=== PATIENT | male | born 1945 | race Hispanic/Latino ===

== ENCOUNTER 2016-08-20 08:35 | Inpatient (IN) | payer MEDICARE, OTHER ==
[2016-08-20 08:59] VITALS: BMI 20.6
--- NOTE | 2016-08-20 09:35 | ED PDOC ---
Arrival/HPI - General Chief Complaint: Trauma Time Seen by Provider: 08/20/16 09:23 Historian: Patient, Family (Son) - History of Present Illness Narrative History of Present Illness (Text): 08/20/16 09:14 A 71 year old male, whose past medical history includes multiple fall due to history of progressive supranuclear palsy, who presents to the emergency department accompanied by son, for evaluation after a mechanical fall at home. The patient was getting of the bed when he lost balance and fell down. Patient notes some left posterior rib back and right knee pain. Son states patient frequently falls and he is acting at baseline currently. Patient denies any head trauma, loss of consciousness, fever, chills, chest pain, or any other complaints at this time. PMD: Dr. Arriola Time/Duration: Prior to Arrival Symptom Onset: Sudden Symptom Course: Unchanged Quality: Other Activities at Onset: Rest Context: Home Past Medical History - Provider Review Nursing Documentation Reviewed: Yes - Cardiac Hx Hypertension: Yes Hx Pacemaker: No - Neurological Hx Paralysis: No (DRAGS R LEG) - Hematological/Oncological Hx Blood Transfusions: No Hx Blood Transfusion Reaction: No - Musculoskeletal/Rheumatological Hx Musculoskeletal Disorders: Yes - Psychiatric Hx Emotional Abuse: No Hx Physical Abuse: No Hx Substance Use: Yes - Surgical History Hx Cholecystectomy: Yes - Anesthesia Hx Anesthesia: Yes Hx Anesthesia Reactions: No Hx Malignant Hyperthermia: No - Suicidal Assessment Feels Threatened In Home Enviroment: No Family/Social History - Physician Review Nursing Documentation Reviewed: Yes Family/Social History: Unknown Family HX Smoking Status: Former Smoker Hx Alcohol Use: Yes (OCC) Hx Substance Use: Yes Hx Substance Use Treatment: No Allergies/Home Meds Allergies/Adverse Reactions: Allergies No Known Allergies Allergy (Verified 08/20/16 09:25) Home Medications: Home Meds Medication Instructions Recorded Confirmed Clonazepam [Clonazepam] 1 tab PO HS 07/27/15 08/20/16 Escitalopram [Lexapro] 1 tab PO DAILY 07/27/15 08/20/16 Losartan [Cozaar] 1 tab PO BID 07/27/15 08/20/16 Tamsulosin [Flomax] 1 cap PO DAILY 07/27/15 08/20/16 Tramadol HCl [Tramadol HCl] 1 tab PO TID 07/27/15 08/20/16 Gabapentin [Neurontin] 300 mg PO BID 08/20/16 08/20/16 tiZANidine [Zanaflex] 2 mg PO QID 08/20/16 08/20/16 Physical Exam - Physical Exam Narrative Physical Exam (Text): - Review of Systems Constitutional: Normal. absent: Fatigue, Weight Change, Fevers Eyes: Normal ENT: Normal Respiratory: Normal absent: SOB, Cough, Sputum Cardiovascular: Normal absent: Chest pain, Palpitations, Syncope Gastrointestinal: Normal absent: Abdominal pain, Diarrhea, Nausea, Vomiting Genitourinary: Normal. absent: Dysuria, Frequency, Hematuria Musculoskeletal: Left posterior rib pain. Right knee pain. absent: Arthralgias, Back Pain, Neck Pain Skin: Normal Neurological: Normal absent: Focal Weakness Endocrine: Normal Hemo/Lymphatic: Normal Psychiatric: Normal - Physical exam Patient appears age appropriate, speaking full sentences without difficulty - Systems Exam Head: Present: Atraumatic, Normocephalic Pupils: Present: PERRL Extraocular Muscles: Present: EOMI Conjunctiva: Present: Normal Mouth: Present: Moist Mucous Membranes Neck: Present: Normal Range of Motion. No: MIDLINE TENDERNESS, Paraspinal Tenderness Respiratory/Chest: Present: Clear to Auscultation, Good Air Exchange. Tenderness with palpation to the posterior left ribs (pain quality is reproducible with palpation.) No: Respiratory Distress, Accessory Muscle Use, Tachypneic Cardiovascular: Present: Regular Rate and Rhythm, Normal S1, S2, Peripheral Pulses Present. No: Murmurs Abdomen: Present: Normal Bowel Sounds, No: Tenderness, Peritoneal Signs, Rebound, Guarding, Distention Back: Present: Normal Inspection. No: Midline Tenderness, Paraspinal Tenderness Upper Extremity: Present: Normal Inspection. No: Cyanosis, Edema Lower Extremity: Present: Superficial abrasion to the right knee. No: Edema Neurological: Present: GCS=15, Speech Normal, cranial nerves II through XII fully intact with no cerebellar abnormality, neuro-sensory fully intact. No focal neurological deficits. Skin: Present: Warm, Dry, Normal Color. Abrasion to the rigth knee. No: Rashes Lymphatic: Present: OX3, NI, NC Psychiatric: Present: Alert, Oriented x 3, Normal Insight, Normal Concentration Head atraumatic. No nasal bone deformity or tenderness, no facial or jaw pain/ swelling. No neck midline tenderness, thoracic and lumbar spine with no midline tenderness. tenderness with palpation to the posterior left rib. Pt moving b/l upper and lower extremities without difficulty, 5/5 strength, with full active and passive ROM. Superficial abrasion to the right knee. Distal neurovasc fully intact. Abd soft/nt/nd, no hematomas, no peritoneal signs. Neg. pelvic rock. Vital Signs Reviewed: Yes Vital Signs Temp Pulse Resp BP Pulse Ox 08/20/16 08:59 97.1 F L 78 18 130/81 100 Temperature: Afebrile Blood Pressure: Normal Pulse: Regular Respiratory Rate: Normal Appearance: Positive for: Well-Appearing, Non-Toxic, Comfortable Pain Distress: None Mental Status: Positive for: Alert and Oriented X 3 Medical Decision Making ED Course and Treatment: 08/20/16 09:14 Impression: A 71 year old male with left rib and right knee pain after a mechanical fall. On physical examination the patient and reproducible tenderness with palpation to the left posterior rib and a superficial abrasion to the right knee. Differential Diagnosis include but are not limited to: fractures vs. vs. sprain Plan: -- Head CT -- Thoracic Spine X-ray -- Right Knee X-ray -- Right Ribs and PA Chest X-ray -- Tylenol -- Reassess and disposition Progress Notes: Head CT: Tele Tech: Paradise Steiner MD IMPRESSION: No acute intracranial abnormality. Thoracic Spine X-ray: Tele Tech: Lionel Linn MD IMPRESSION: Mild degenerative changes. No acute compression fracture. Right Ribs and PA Chest X-ray: Tele Tech: Lionel Linn MD IMPRESSION: Unremarkable radiographs of the chest and right ribs. No right rib fracture. Right Knee X-ray: Tele Tech: Lionel Linn MD IMPRESSION: Normal radiographs of the right knee. 08/20/16 12:16 Left Rib X-ray: Tele Tech : Lionel Orourke MD IMPRESSION: There is a displaced transverse fracture through the lateral aspect of the left 8th rib. There is no pneumothorax 08/20/16 12:49 Patient is in pain and cannot ambulate. Family reports they are not comfortable taking the patient home at this time. 08/20/16 12:[address] Arriola, accepted admission to his service pt and family aware of and agree with plan - RAD Interpretation Radiology Orders: 08/20/16 09:32 HEAD W/O CONTRAST [CT] Stat DORSAL (THORACIC) SPINE [RAD] Stat KNEE RIGHT 2 VIEWS (AP & LAT) [RAD] Stat RIBS RIGHT & PA CHEST [RAD] Stat 08/20/16 11:31 RIBS LEFT [RAD] Stat - Medication Orders Current Medication Orders: Discontinued Medications Acetaminophen (Tylenol 325mg Tab) 975 mg PO STAT STA Stop: 08/20/16 09:32 Last Admin: 08/20/16 09:49 Dose: 975 mg - Scribe Statement The provider has reviewed the documentation as recorded by the Lucas Bullock Provider Scribe Attestation: All medical record entries made by the Lucas were at my direction and personally dictated by me. I have reviewed the chart and agree that the record accurately reflects my personal performance of the history, physical exam, medical decision making, and the department course for this patient. I have also personally directed, reviewed, and agree with the discharge instructions and disposition. Disposition/Present on Arrival - Present on Arrival Any Indicators Present on Arrival: No History of DVT/PE: No History of Uncontrolled Diabetes: No Urinary Catheter: No History of Decub. Ulcer: No History Surgical Site Infection Following: None - Disposition Have Diagnosis and Disposition been Completed?: Yes Diagnosis: Rib fracture Disposition: HOSPITALIZED Disposition Time: 12:55 Patient Plan: Admission Condition: FAIR Referrals: Darrian Arriola JD, MD [Primary Care Provider] - Follow up with primary
--- NOTE | 2016-08-20 11:14 | RAD ---
HISTORY: fall COMPARISON: No prior. FINDINGS: BONES: Alignment maintained. No fracture. DISC SPACES: Normal. SOFT TISSUES: Normal. OTHER FINDINGS: Multiple osteophytes are seen anteriorly and on the right side of the mid and lower thoracic spine IMPRESSION: Mild degenerative changes. No acute compression fracture
--- NOTE | 2016-08-20 11:14 | CT ---
PROCEDURE: CT HEAD WITHOUT CONTRAST. HISTORY: Fall COMPARISON: None available. TECHNIQUE: Axial computed tomography images were obtained through the head/brain without intravenous contrast. Radiation dose: Total exam DLP = 779.37 mGy-cm. This CT exam was performed using one or more of the following dose reduction techniques: Automated exposure control, adjustment of the mA and/or kV according to patient size, and/or use of iterative reconstruction technique. FINDINGS: HEMORRHAGE: No intracranial hemorrhage. BRAIN: Yoon-white matter differentiation is preserved. There is no mass, mass effect or abnormal extra-axial fluid collection. VENTRICLES: The ventricles are normal in size, shape and configuration. CALVARIUM: There is no calvarial fracture or extracranial soft tissue swelling. PARANASAL SINUSES: Predominantly . MASTOID AIR CELLS: Predominantly clear. OTHER FINDINGS: None. IMPRESSION: No acute intracranial abnormality.
--- NOTE | 2016-08-20 11:15 | RAD ---
PROCEDURE: Right Knee Radiographs. HISTORY: fall COMPARISON: None. FINDINGS: BONES: Normal. No fracture. JOINTS: Normal. No osteoarthritis. JOINT EFFUSION: None. OTHER FINDINGS: None. IMPRESSION: Normal radiographs of the right knee.
--- NOTE | 2016-08-20 11:16 | RAD ---
PROCEDURE: Radiographs of the Chest and Right Ribs. HISTORY: fall COMPARISON: None available. TECHNIQUE: Frontal radiograph of the chest and multiple oblique radiographs of the right ribs were obtained. FINDINGS: RIGHT RIBS: No fracture or focal lesion visualized. LUNGS: Clear. PLEURA: No pneumothorax or pleural fluid. CARDIOVASCULAR: Normal sized heart. No pulmonary vascular congestion. OTHER FINDINGS: None. IMPRESSION: Unremarkable radiographs of the chest and right ribs. No right rib fracture.
--- NOTE | 2016-08-20 12:17 | RAD ---
PROCEDURE: Left ribs HISTORY: fall COMPARISON: TECHNIQUE: Three views FINDINGS: There is a displaced transverse fracture through the lateral aspect of the left 8th rib. There is no pneumothorax IMPRESSION: There is a displaced transverse fracture through the lateral aspect of the left 8th rib. There is no pneumothorax
[2016-08-20 13:31] LABS: ADD MANUAL DIFF? NO
[2016-08-20 13:35] LABS: BASO # 0.04 K/mm3 (0.0-2.0); BASO % 0.5 % (0.0-3.0); EOS # 0.1 (0.0-0.7); EOS % 0.7 % (1.5-5.0); GRAN # 6.62 (1.4-6.5); GRAN % 78.6 % (50.0-68.0); HEMATOCRIT 38.4 % (42.0-52.0); LYMPH % 12.3 % (22.0-35.0); MEAN CELL VOLUME 86.5 fL (80.0-105.0); MEAN CORPUSCULAR HEMOGLOBIN 28.8 pg (25.0-35.0); MEAN CORPUSCULAR HGB CONC 33.3 g/dl (31.0-37.0); MEAN PLATELET VOLUME 9.4 fl (7.0-11.0); MONO # 0.7 (0.1-0.6); MONO % 7.9 % (1.0-6.0); PLATELET COUNT 211 10^3/uL (120.0-450.0); RED CELL DISTRIBUTION WIDTH 14.5 % (11.5-14.5); WHITE BLOOD COUNT 8.4 10^3/ul (4.5-11.0)
[2016-08-20 13:43] LABS: ALB/GLOB RATIO 1.3 (1.1-1.8); ALKALINE PHOSPHATASE 66 U/L (38-133); ALT/SGPT 32 U/L (7-56); AST/SGOT 21 U/L (15-59); BILIRUBIN,TOTAL 0.8 mg/dL (0.2-1.3); BLOOD UREA NITROGEN 14 mg/dL (7-21); CALCIUM 9.1 mg/dL (8.4-10.5); CARBON DIOXIDE 27 mmol/L (21-33); CHLORIDE 105 mmol/L (95-110); GFR AFRICAN-AMERICAN > 60; GLUCOSE,RANDOM 95 mg/dL (70-110); POTASSIUM 3.9 mmol/L (3.6-5.0); SODIUM 141 mmol/L (132-148); TOTAL PROTEIN 6.6 g/dL (5.8-8.3)
[2016-08-20] MEDS ORDERED: Pneumococcal 23-Valent Vaccine IM ONE (22:18)
[2016-08-21] MEDS: Carbidopa/Levodopa 25/250 PO SCH ×2 (15:41→18:57)
--- NOTE | 2016-08-21 17:09 | CON ---
DATE: 08/21/2016 CHIEF COMPLAINT: History of PSP status post fall. HISTORY OF PRESENT ILLNESS: This is a 71-year-old man with history of hypertension, history of PSP d iagnosed by Dr. Telles, his neurologist; history of anxiety, who presents to the hospital because schreiber s multiple falls. Apparently, he had a mechanical fall at home when he was getting out of bed. He h ad lost his balance and fell down. He noticed some left posterior rib, back and right knee pain, but no head trauma, no loss of consciousness. He found to have a displaced fracture at the lateral aspe ct of the left eighth rib, but no pneumothorax on the left rib x-ray. CT head showed no acute intrac ranial abnormality. He has had an MRI of the brain in the past in 12/2015, which showed no acute int racranial abnormality. He is on tizanidine for muscle spasms and gabapentin for neuropathic pain. PAST MEDICAL HISTORY: PSP diagnosed by his neurologist, Dr. Telles. Hypertension. REVIEW OF SYSTEMS: A 14-point review of systems negative except for the HPI. ALLERGIES: No known drug allergies. MEDICATIONS: Reviewed via nurse's reconciliation sheet. SOCIAL HISTORY: No illicit drug use, smoking or ETOH abuse. FAMILY HISTORY: Noncontributory. PHYSICAL EXAMINATION: VITAL SIGNS: Temperature 98.5, pulse rate 78, blood pressure 116/71, respiratory rate of 18. Oxygen saturation 98% via room air. GENERAL: The patient is sitting up in bed in no acute distress. HEENT: Atraumatic, normocephalic. PERRLA. Extraocular muscles intact. NECK: Supple, no JVD, no adenopathy noted. LUNGS: Clear to auscultation. No adventitious sounds. HEART: S1, S2, normal rate and rhythm. No murmurs, rubs, or gallops. ABDOMEN: Soft, nontender, nondistended. Bowel sounds are present. EXTREMITIES: No clubbing, no cyanosis. Peripheral pulses 2+ felt bilaterally. NEUROLOGIC: The patient is alert, orientated to person, place, month and year. Speech is hypophonic . Has a ____ like, mass-like facies, limited upward gaze and attention span, thought process slow. Recall after 5 minutes is 0/3. Cranial nerves II-XII intact. MOTOR: Slight increased tone throughout, mild cogwheel rigidity at the wrists. Has forward flexion of the spine. SENSORY: Light touch, pinprick, proprioception, vibration intact. DTRs are 1+ throughout. COORDINATION: [id number]-srcs intact. GAIT: Deferred for now. LABORATORIES: Sodium 141, potassium 3.9, chloride of 105, carbon dioxide of 27, BUN of 14, creatinin e 0.9, random glucose 95. ASSESSMENT AND PLAN: This is a 71-year-old man with history of chronic back pain on Zanaflex 2 mg q. i.d. and gabapentin 300 mg p.o. b.i.d. and tramadol by his neurologist, Dr. Telles; history of anxie ty and hypertension, who had a mechanical fall and has history of progressive supranuclear palsy, whi ch has had mechanical falls, multiple falls in the past. The patient overall has a diagnosis of prog ressive supranuclear palsy diagnosed by his neurologist, Dr. Telles. At this time, his mechanical f all resulted in a left posterior eighth rib fracture. No loss of consciousness. No head injury. CT head showed no acute intracranial abnormality. At this time, we will recommend physical and occupat ional therapy evaluation. Avoid overuse of tramadol, which can cause seizures in this patient's age group and may benefit from some subacute rehabilitation. At this time, continue with current present management. No further neurological workup at this time. Please reconsult if necessary. Rodrigo Shankar MD cc: [phone] TT: 08/21/2016 17:08:44 Confirmation # [id number] Dictation # [id number] sn
--- NOTE | 2016-08-21 20:04 | HP ---
HISTORY OF PRESENT ILLNESS: The patient is a 71-year-old male with a history of progressive supranuc lear palsy who presented to the Emergency Department on 08/20/2016 after a fall at home. The patient sustained a fracture of the left 8th rib and he has been unable to walk. The patient has a history of recurrent falls. He denies any head trauma. There was no loss of consciousness or seizure. PAST MEDICAL HISTORY: Includes progressive supranuclear palsy, hypertension and depression. PAST SURGICAL HISTORY: Includes BPH. The patient has a history of spinal stenosis status post khurram ectomy. He has a history of cholecystectomy in 2009. ALLERGIES: The patient has no known allergies. CURRENT MEDICATIONS: Include losartan 50 mg twice daily, Flomax 0.4 mg daily, Klonopin 1 mg at bedti me, Lexapro 10 mg daily, Sinemet 25/250 one tab 3 times daily, tramadol 50 mg 3 times daily and Zanaf unique 2 mg at bedtime. SOCIAL HISTORY: The patient has no history of tobacco or alcohol use. He lives at home with his wif haim. He needs assistance with IADLs and is independent with ADLs. FAMILY HISTORY: Noncontributory. REVIEW OF SYSTEMS: Essentially negative other than above. There is no chest pain, no shortness of b reath, no fever, no chills, no cough, no hemoptysis, no rash, no jaundice, no abdominal pain, no naus ea, no vomiting, no diarrhea, no melena, no bright red blood per rectum. PHYSICAL EXAMINATION: GENERAL: The patient is a somewhat cachectic appearing male in no acute distress. VITAL SIGNS: Blood pressure 116/71, temperature 98.5, pulse 78, respiratory rate 18. HEENT: Head is normocephalic, atraumatic. Pupils equal, round, reactive to light. Extraocular move ments intact. NECK: Supple with no thyromegaly, no carotid bruit, no adenopathy. LUNGS: Clear. HEART: Regular rate and rhythm. ABDOMEN: Soft, nontender, bowel sounds are normoactive. EXTREMITIES: Without cyanosis, clubbing or edema. There is mild to moderate muscle wasting and atro phy in all 4 extremities bilaterally. NEUROLOGIC: The patient is awake and responsive. He has some rigidity and cogwheeling involving all 4 extremities. Gait is ataxic. He is slightly dysarthric. SKIN: Warm and dry. LABORATORY DATA: WBC is 8.4, hemoglobin 12.8, hematocrit 38.4. Sodium 141, potassium 3.9, chloride 105, CO2 of 27, BUN 14, creatinine 0.9, glucose 95. CT scan of the head shows no acute bleeds or inf arcts. IMPRESSION: 1. Progressive supranuclear palsy, status post fall with fracture of the left 8th rib. 2. Hypertension. 3. History of spinal stenosis status post laminectomy. 4. Benign prostatic hypertrophy. PLAN: The patient is admitted to the medical-surgical floor. Will obtain neurology consult with Dr. Shankar. Continue Sinemet. Physical therapy and social work for discharge planning. Darrian Arriola JD, MD cc: [phone] TT: 08/21/2016 20:04:03 [place]
[2016-08-22 07:48] LABS: HEMATOCRIT 39.8 % (42.0-52.0); MEAN CELL VOLUME 86.9 fL (80.0-105.0); MEAN CORPUSCULAR HEMOGLOBIN 28.6 pg (25.0-35.0); MEAN CORPUSCULAR HGB CONC 32.9 g/dl (31.0-37.0); MEAN PLATELET VOLUME 9.6 fl (7.0-11.0); RED CELL DISTRIBUTION WIDTH 14.6 % (11.5-14.5); WHITE BLOOD COUNT 6.2 10^3/ul (4.5-11.0)
[2016-08-22 08:18] LABS: BLOOD UREA NITROGEN 16 mg/dL (7-21); CALCIUM 9.2 mg/dL (8.4-10.5); CARBON DIOXIDE 28 mmol/L (21-33); CHLORIDE 107 mmol/L (98-107); GFR AFRICAN-AMERICAN > 60; GLUCOSE,RANDOM 92 mg/dL (70-110); MAGNESIUM 1.9 mg/dL (1.7-2.2); POTASSIUM 4.2 mmol/L (3.6-5.0); SODIUM 141 mmol/L (132-148)
[2016-08-22] MEDS: Carbidopa/Levodopa 25/250 PO SCH ×3 (10:14→18:05)
--- NOTE | 2016-08-22 14:14 | PN ---
DATE: 08/22/2016 SUBJECTIVE: The patient is lying in bed, in no acute distress. OBJECTIVE: VITAL SIGNS: Blood pressure 104/72, temperature 98, pulse 72, respiratory rate 20. LUNGS: Clear. HEART: Regular rate and rhythm. ABDOMEN: Soft, nontender, bowel sounds are normoactive. EXTREMITIES: Without cyanosis, clubbing, or edema. NEUROLOGIC: The patient is awake and responsive with rigidity and cogwheeling involving all 4 extrem ities. He remains slightly dysarthric. SKIN: Warm and dry. LABORATORY DATA: WBC 6.2, hemoglobin 13.1, hematocrit 39.8. Sodium 141, potassium 4.2, chloride 107 , CO2 28, BUN 16, creatinine 1.0, glucose 92. IMPRESSION: 1. Progressive supranuclear palsy, status post fall with fracture of left 8th rib and gait dysfuncti on with inability to walk. 2. Hypertension. 3. History of spinal stenosis status post laminectomy with chronic low back pain. 4. Benign prostatic hypertrophy. PLAN: Neurology consult with Dr. Shankar is appreciated. Continue Sinemet, gabapentin for neuropathi c pain, physical therapy for ambulation, and social work for discharge planning. Darrian Arriola JD, MD cc: [id number] TT: 08/22/2016 14:13:15 Confirmation # [id number] Dictation # [id number] ne
[2016-08-23] MEDS: Carbidopa/Levodopa 25/250 PO SCH ×3 (09:20→17:03)
--- NOTE | 2016-08-23 15:46 | PN ---
DATE: 08/23/2016 SUBJECTIVE: The patient is lying in bed, in no acute distress. OBJECTIVE: VITAL SIGNS: Blood pressure 102/65, temperature 98.2, pulse 69, respiratory rate 20. LUNGS: Clear. HEART: Regular rate and rhythm. ABDOMEN: Soft, nontender, bowel sounds are normoactive. EXTREMITIES: Without cyanosis, clubbing, or edema. NEUROLOGIC: The patient is awake and responsive. He has mild cogwheeling and rigidity involving all 4 extremities. He remains somewhat dysarthric. SKIN: Warm and dry. IMPRESSION: 1. Progressive supranuclear palsy, status post fall with fractured left 8th rib/gait dysfunction. 2. Hypertension. 3. History of spinal stenosis, status post laminectomy with chronic low back pain. 4. Benign prostatic hypertrophy. PLAN: Continue neurology followup with Dr. Shankar. Physical therapy and social work for discharge jos riley. Darrian Arriola JD, MD cc: [id number] TT: 08/23/2016 15:45:40 Confirmation # [id number] Dictation # [id number] en
[2016-08-23 17:06] VITALS: BP 111/75; PULSE 81
[2016-08-23 18:03] VITALS: RESP 16; TEMP 98.1; O2SAT 95
--- NOTE | 2016-08-24 12:39 | DS ---
HOSPITAL COURSE: The patient is a 71-year-old male admitted through the Emergency Department on 2016 after sustaining a fall at home with a fracture of the left 8th rib and subsequent inability to ambulate. The patient was started on physical therapy. Neurology consultation was obtained with Dr. Shankar and the patient was started on physical therapy for ambulation. [facility] and was discharged to subacute rehab facility on 08/23/2016 in stable condition. Physical fin dings including vital signs are as per progress note dictated 08/23/2016. MEDICATIONS: The patient was discharged on the following medications: Neurontin 300 mg twice daily, Lexapro 10 mg daily, Klonopin 1 mg at bedtime, Sinemet-CR 200/50 one tab 3 times daily, tramadol 50 mg 3 times daily. IMPRESSION: 1. Progressive supranuclear palsy, status post fall with fracture of the 8th rib/gait dysfunction. 2. Hypertension. 3. History of spinal stenosis status post laminectomy with chronic low back pain. 4. Benign prostatic hypertrophy. PLAN: The patient was discharged to subacute rehab facility. He was discharged on a regular diet. Activity is as per the rehabilitation facility. Darrian Arriola JD, MD cc: [id number] TT: 08/24/2016 12:38:46 [place]
--- NOTE | 2016-09-10 08:27 | CON ---
DATE: 08/20/2016 This is a 71-year-old male with past medical history of falls due to progressive supranuclear palsy w ho presents to the Emergency Department accompanied by son for eval after a fall at home. The patien t got out of bed, lost his balance and fell down. The patient notes some left posterior rib, back pa in and right knee pain. Denies any loss of consciousness, fever, chills, chest pain, or any other co mplaints at this time. PHYSICAL EXAMINATION: CONSTITUTIONAL: Normal. No weight loss, no fever, no fatigue. EYES: Normal. ENT: Normal. RESPIRATORY: Lung sounds clear bilaterally. No shortness of breath or cough. CARDIOVASCULAR: S1, S2 audible, regular rate and rhythm. ABDOMEN: Normal sounds. No tenderness. No rebound or guarding. BACK: Normal inspection, no tenderness, no paraspinal tenderness. No tenderness over L3 and L4 leve ls. UPPER EXTREMITIES: Normal inspection. No cyanosis or edema. LOWER EXTREMITIES: There is an abrasion to the right knee. No signs of infection, no drainage. NEUROLOGIC: Speech is normal. Cranial nerves II-XII are intact. Neurosensory is intact. No neurol ogical deficit. SKIN: Warm and dry. Normal color. No rashes. PSYCHIATRIC: The patient is alert and oriented x 3. MUSCULOSKELETAL: Full range of motion to bilateral upper and lower extremities. CT scan was done on 08/20 of the head with no acute injuries and x-ray of the left ribs showed transv erse fracture through 8th rib. No pneumothorax. So at this time, we will change Zanaflex 2 mg from 4 times a day to bedtime and will continue tramado l 50 mg 3 times a day as needed. We will continue to monitor for any issues. The patient is in pain at this time and cannot ambulate. Will consider physical therapy during next visit. Oleg Alexander MD cc: [id number] TT: 09/07/2016 16:14:15 Confirmation # [id number] Dictation # [id number] en
== END 2016-08-23 18:40 | DRG 206 ==
LOC: ED 08:35 → ERH 12:51 → 5RSO 15:05
PROVIDERS: ADMIT Internal Medicine; ATTEND Internal Medicine
DX: S22.32XA Fracture of one rib, left side, initial encounter for closed fracture (principal); G23.1 Progressive supranuclear ophthalmoplegia [Steele-Richardson-Olszewski]; I10 Essential (primary) hypertension; F32.9 Major depressive disorder, single episode, unspecified; N40.0 Benign prostatic hyperplasia without lower urinary tract symptoms; M48.00 Spinal stenosis, site unspecified; F41.9 Anxiety disorder, unspecified; R26.2 Difficulty in walking, not elsewhere classified; Z91.81 History of falling; R29.6 Repeated falls; W19.XXXA Unspecified fall, initial encounter; Y92.013 Bedroom of single-family (private) house as the place of occurrence of the external cause

== ENCOUNTER 2016-12-06 13:04 | Inpatient (IN) | payer MEDICARE, OTHER ==
[2016-12-06 13:18] VITALS: BMI 19.8
--- NOTE | 2016-12-06 14:00 | ED PDOC ---
Arrival/HPI - General Historian: Patient - History of Present Illness Time/Duration: Other (yesterday) Symptom Onset: Sudden Symptom Course: Unchanged <Barry Segura - Last Filed: 12/06/16 17:18> <Deondre Hoyos - Last Filed: 12/06/16 18:54> - General Chief Complaint: Trauma Time Seen by Provider: 12/06/16 13:06 - History of Present Illness Narrative History of Present Illness (Text): 12/06/16 13:56 This is a 71 year old male with PMHx Progressive Supranuclear Palsy diagnosed in 01/2016, HTN, Anxiety who presents complaining of frequent falls. Per the son , it seems as if the patient's right leg lags behind the left. Patient has had 4 or 5 episodes of unwitnessed falls. No reported LOC, although the patient states that he hit his head, neck, face, right ribs, and right knee. Patient denies any acute changes in vision, dizziness, or weakness. Patient complains of tenderness in the neck but his worst pain is in the posterior right ribcage. Patient complains of chronic lower back pain. PMD: Dr. Arriola Neurologist: Dr. Telles (Barry Segura) Past Medical History - Cardiac Hx Hypertension: Yes - Neurological HX Cerebrovascular Accident: Yes (drags right foot) - Hematological/Oncological Hx Blood Transfusions: No Hx Blood Transfusion Reaction: No - Integumentary Other/Comment: scrape under left forearm, multiple r knee abrasions - Musculoskeletal/Rheumatological Hx Arthritis: Yes - Psychiatric Hx Emotional Abuse: No Hx Physical Abuse: No Hx Substance Use: Yes (marijuana stopped can't remember when) - Surgical History Hx Cholecystectomy: Yes - Anesthesia Hx Anesthesia: Yes Hx Anesthesia Reactions: No Hx Malignant Hyperthermia: No - Suicidal Assessment Feels Threatened In Home Enviroment: No <Barry Segura - Last Filed: 12/06/16 17:18> - Provider Review Nursing Documentation Reviewed: Yes <Deondre Hoyos - Last Filed: 12/06/16 18:54> Family/Social History Smoking Status: Never Smoked Hx Alcohol Use: No Hx Substance Use: Yes (marijuana stopped can't remember when) Hx Substance Use Treatment: No <Barry Segura - Last Filed: 12/06/16 17:18> - Physician Review Nursing Documentation Reviewed: Yes Family/Social History: No Known Family HX <Obed Hoyoso L - Last Filed: 12/06/16 18:54> Allergies/Home Meds <Barry Segura - Last Filed: 12/06/16 17:18> <Obed Hoyosdebo Akers - Last Filed: 12/06/16 18:54> Allergies/Adverse Reactions: Allergies No Known Allergies Allergy (Verified 08/20/16 09:25) Home Medications: Home Meds Medication Instructions Recorded Confirmed Clonazepam [Clonazepam] 1 tab PO HS 07/27/15 12/06/16 Escitalopram [Lexapro] 1 tab PO DAILY 07/27/15 12/06/16 Losartan [Cozaar] 100 mg PO DAILY 07/27/15 12/06/16 Tamsulosin [Flomax] 1 cap PO DAILY 07/27/15 12/06/16 Tramadol HCl [Tramadol HCl] 1 tab PO TID 07/27/15 12/06/16 Gabapentin [Neurontin] 300 mg PO BID 08/20/16 12/06/16 tiZANidine [Zanaflex] 0.5 mg PO BID 08/20/16 12/06/16 Carbidopa/Levodopa 1 tab PO TID 12/06/16 12/06/16 [Carbidopa-Levodopa 25-250 Tab] Review of Systems - Review of Systems Constitutional: Normal Eyes: Normal. absent: Vision Changes ENT: Normal Respiratory: Normal Cardiovascular: Normal Gastrointestinal: Normal Genitourinary Male: Normal Musculoskeletal: Back Pain (chronic low back pain), Neck Pain, Other (right posterior ribcage pain) Skin: Other (various abrasions in all 4 extremities) Neurological: Normal. absent: Dizziness, Focal Weakness Endocrine: Normal Hemo/Lymphatic: Normal Psychiatric: Normal <Barry Seguar - Last Filed: 12/06/16 17:18> Physical Exam Vital Signs Reviewed: Yes Temperature: Afebrile Blood Pressure: Normal Pulse: Regular Respiratory Rate: Normal Appearance: Positive for: Comfortable Pain Distress: None Mental Status: Positive for: Alert and Oriented X 3 - Systems Exam Head: Present: Atraumatic, Normocephalic Pupils: Present: PERRL Extroacular Muscles: Present: EOMI Conjunctiva: Present: Normal Mouth: Present: Moist Mucous Membranes Nose (External): Present: Abrasion Neck: Present: Normal Range of Motion, Paraspinal Tenderness Respiratory/Chest: Present: Clear to Auscultation, Good Air Exchange. No: Accessory Muscle Use Cardiovascular: Present: Regular Rate and Rhythm, Normal S1, S2 Abdomen: Present: Normal Bowel Sounds. No: Tenderness, Distention Back: Present: Other (tenderness along posterior right ribcage). No: Midline Tenderness Upper Extremity: Present: Normal Inspection, NORMAL PULSES, Other (multiple abrasions in different stages of healing bilaterally). No: Edema Lower Extremity: Present: Normal Inspection, NORMAL PULSES, Other (multiple abrasions in different stages of healing bilaterally). No: Edema, CALF TENDERNESS Neurological: Present: GCS=15, CN II-XII Intact, Motor Func Grossly Intact, Normal Sensory Function, Other (Bilateral clonus in lower extremities. Plantar responses up-going. Partial left foot drop. Right foot drop with early stages of plantarflexion contracture.). No: Speech Normal (hypophonic) Skin: Present: Warm, Dry Psychiatric: Present: Alert, Oriented x 3 <Barry Segura S - Last Filed: 12/06/16 17:18> Vital Signs Temp Pulse Resp BP Pulse Ox 12/06/16 15:53 75 18 122/68 99 12/06/16 14:20 79 18 118/65 99 12/06/16 13:17 98.7 F 82 19 121/63 99 12/06/16 13:10 20 Medical Decision Making <Barry Segura S - Last Filed: 12/06/16 17:18> <Deondre Hoyos - Last Filed: 12/06/16 18:54> ED Course and Treatment: 12/06/16 14:08 Impression: This is a 71 year old male with PMHx Progressive Supranuclear Palsy , recurrent falls who presents complaining of multiple falls yesterday. Patient recently hospitalized in August 2016 and went to [facility] before returning home. Patient's son states that he receives home PT but has run out of sessions that insurance will pay for. Plan: CBC, CMP, Mag, Phos CT Head w.o. contrast Cervical Spine CT w.o. contrast Maxillofacial CT w.o. contrast Right rib Xray Dorsal Thoracic Xray LS Xray Right Knee Xray CT Head w.o. contrast: FINDINGS: HEMORRHAGE: Current study reveals thin/relatively small but extensive of left-sided subdural hematoma which extends nearly from skullbase to vertex. There is mild mass effect most notably along the left inferior mid frontal region with mild compressive effects on subjacent sulci. . BRAIN: Minor chronic periventricular white matter ischemic changes are felt to be present. No evidence of large acute infarct so far as can be seen. Mild generalized volume loss. Minor vascular calcifications are present. VENTRICLES: No evidence of obstructive hydrocephalus. CALVARIUM: No acute calvarial fractures. PARANASAL SINUSES: Minimal mucosal thickening seen within the ethmoid air complex. Tiny focus polypoid like mucosal thickening left maxillary antrum. Bilateral nasal bone fracture deformities are present with overlying mild soft tissue swelling MASTOID AIR CELLS: Unremarkable as visualized. No inflammatory changes. OTHER FINDINGS: None. IMPRESSION: There is a small somewhat thin but extensive left-sided subdural hematoma which from nearly the skullbase to the vertex of with mild mass effect as described. Maxillofacial CT: FINDINGS: NASAL BONES: There are bilateral nasal bone fractures left more significantly displaced than the right. Overlying soft tissue swelling. There appears to be slight leftward deviation of the nasal septum as well. Mild submucosal hemorrhage felt be present within the septum and more so on the left than right. ORBITS: Bony orbits appear intact. . . Orbital contents unremarkable. Globes intact and lenses appropriately located. There are no retrobulbar hemorrhages or collections. Optic nerves and extraocular musculature unremarkable. PARANASAL SINUSES/ MASTOIDS: The paranasal sinuses are well-developed and currently relatively well-aerated. There are no fluid levels seen to suggest acute hemorrhage or sinusitis. Minor mucosal thickening seen within the left maxillary sinus. Minimal mucosal thickening also noted within the ethmoid air complex extending superiorly into the inferior margins of the frontal sinus. MAXILLA: The maxilla including the anterior nasal spine intact MANDIBLE/ TEMPOROMANDIBULAR JOINTS: Mandible intact without evidence of displacement/ dislocation of the mandibular condyles. SKULL BASE: Skull base appears intact so far as can be seen TEMPORAL BONES: Middle ears are not visualized OTHER FINDINGS: Re- demonstrated is a left-sided subdural hematoma most pronounced in the left anterior inferior mid frontal region. IMPRESSION: Bilateral nasal bone fractures left-sided which appears on comminuted and significantly displaced to the right side with overlying soft tissue swelling. . . There is also presumed submucosal hemorrhage within the anterior nasal septum left greater than right. Left-sided subdural hematoma. Please refer to CT scan of the brain for additional details. Thoracic Spine Xray: IMPRESSION: No acute fractures. Multilevel degenerative spondylosis. Lumbar Spine Xray: IMPRESSION: No acute fractures. Bilateral laminectomy with posterior fixation as described. Multilevel degenerative spondylosis as described. Right Knee Xray: IMPRESSION: No acute fracture seen. Findings suggest chondrocalcinosis; rule out CPPD Vascular clips are present within soft tissues; clinical correlation with surgical history. Right Ribs Xray: IMPRESSION: Acute mildly displaced fractures in the right posterolateral 9th, 10th and 11th ribs. No pneumothorax. Dr. Tavarez (neurosurgery consulted), recommended conservative management and ICU admission. Vocational Adviser contacted who agreed for admission at 16:00. (Barry Segura) A 71 year old male presents to evaluation concerning frequent falls. In agreement with resident note, which includes further HPI details. Patient was seen and evaluated with resident, came up with plan and treatment together. EKG shows NSR at [address]-segment elevations, normal intervals, normal axis. Interpreted by me. Xray showed Rib fractures at 9/10/11 ribs on the right. No PTX. CT Max shows nasal bone fractures as noted. CT head showed SDH as noted. Discussed case with Dr. Tavarez who states to admit to ICU and repeat CT in the morning. I discussed the case with Dr. Hines who will take the patient to the ICU. I discussed the case with Dr. Hedy Arriola who will accept the case. (Deondre Hoyos) - Lab Interpretations Lab Results: 12/06/16 14:23 12/06/16 14:23 Lab Results 12/06/16 14:23: Sodium 141, Potassium 3.6, Chloride 105, Carbon Dioxide 25, Anion Gap 15, BUN 15, Creatinine 0.9, Est GFR ( Amer) > 60, Est GFR (Non- Af Amer) > 60, Random Glucose 100, Calcium 8.8, Phosphorus 3.1, Magnesium 1.8, Total Bilirubin 1.3, AST 26, ALT 25, Alkaline Phosphatase 57, Total Protein 6.4 , Albumin 3.8, Globulin 2.7, Albumin/Globulin Ratio 1.4 09/21/17 14:23: WBC 7.2, RBC 4.13, Hgb 11.7 L, Hct 35.5 L, MCV 86.0, MCH 28.3, MCHC 33.0, RDW 14.0, Plt Count 173, MPV 10.0, Gran % 72.5 H, Lymph % (Auto) 14.8 L, [place] % (Auto) 12.0 H, Eos % (Auto) 0.3 L, Baso % (Auto) 0.4, Gran # 5.20 , Lymph # 1.1 L, [place] # 0.9 H, Eos # 0.0, Baso # 0.03 - RAD Interpretation Radiology Orders: 12/06/16 13:53 HEAD W/O CONTRAST [CT] Stat MAXILLOFACIAL W/O CONTRAST [CT] Stat DORSAL (THORACIC) SPINE [RAD] Stat KNEE RIGHT 2 VIEWS (AP & LAT) [RAD] Stat LS SPINE WITH OBL > 18 YRS OLD [RAD] Stat RIBS RIGHT [RAD] Stat 12/06/16 14:00 CERVICAL SPINE W/O CONTRAST [CT] Stat - Medication Orders Current Medication Orders: Carbidopa/Levodopa (Sinemet) 1 tab PO TID CARLOS Escitalopram Oxalate (Lexapro) 10 mg PO DAILY CARLOS Hydralazine HCl (Apresoline) 10 mg IVP Q6 PRN PRN Reason: Systolic Blood Pressure Acetaminophen (Ofirmev) 1,000 mg in 100 mls @ 400 mls/hr IVPB Q6H PRN PRN Reason: Pain, moderate (4-7) Stop: 12/08/16 17:38 Last Admin: 12/06/16 18:01 Dose: 400 mls/hr eMAR Start Stop Document 12/06/16 18:01 MS (Rec: 12/06/16 18:02 MS [facility] [id number]) Intravenous Solution Start Date 12/06/16 Start Time 18:02 MAR Pain Assessment Document 12/06/16 18:01 MS (Rec: 12/06/16 18:02 MS [facility] [id number]) Pain Reassessment Is this a pain reassessment? No Losartan Potassium (Cozaar) 100 mg PO DAILY CARLOS Tamsulosin HCl (Flomax) 0.4 mg PO DAILY CARLOS <Barry Segura S - Last Filed: 12/06/16 17:18> - PA / ADVERTISING SALES AGENT / Resident Statement MD/DO has reviewed & agrees with the documentation as recorded. MD/DO has examined the patient and agrees with the treatment plan. - Scribe Statement The provider has reviewed the documentation as recorded by the Scribe <Deondre Hoyos - Last Filed: 12/06/16 18:54> - Scribe Statement Meka Rogers Provider Scribe Attestation: All medical record entries made by the Scribe were at my direction and personally dictated by me. I have reviewed the chart and agree that the record accurately reflects my personal performance of the history, physical exam, medical decision making, and the department course for this patient. I have also personally directed, reviewed, and agree with the discharge instructions and disposition. (Deondre Hoyos) Disposition/Present on Arrival - Present on Arrival Any Indicators Present on Arrival: No History of DVT/PE: No History of Uncontrolled Diabetes: No Urinary Catheter: No History of Decub. Ulcer: No History Surgical Site Infection Following: None - Disposition Have Diagnosis and Disposition been Completed?: Yes Disposition Time: 16:00 <Barry Segura - Last Filed: 12/06/16 17:18> - Disposition Patient Plan: ICU <Deondre Hoyos - Last Filed: 12/06/16 18:54> - Disposition Diagnosis: Subdural hematoma, Nasal fracture, Rib fractures Disposition: HOSPITALIZED Patient Problems: Current Active Problems Problem Status Onset Nasal fracture Acute Rib fracture Acute Subdural hematoma Acute Condition: CRITICAL
[2016-12-06 14:40] LABS: BASO # 0.03 K/mm3 (0.0-2.0); BASO % 0.4 % (0.0-3.0); EOS % 0.3 % (1.5-5.0); GRAN # 5.2 (1.4-6.5); GRAN % 72.5 % (50.0-68.0); HEMATOCRIT 35.5 % (42.0-52.0); LYMPH # 1.1 (1.2-3.4); LYMPH % 14.8 % (22.0-35.0); MEAN CORPUSCULAR HEMOGLOBIN 28.3 pg (25.0-35.0); MONO # 0.9 (0.1-0.6); WHITE BLOOD COUNT 7.2 10^3/ul (4.5-11.0)
[2016-12-06 14:48] LABS: ALB/GLOB RATIO 1.4 (1.1-1.8); ALKALINE PHOSPHATASE 57 U/L (38-126); ALT/SGPT 25 U/L (7-56); AST/SGOT 26 U/L (17-59); BILIRUBIN,TOTAL 1.3 mg/dL (0.2-1.3); BLOOD UREA NITROGEN 15 mg/dL (7-21); CALCIUM 8.8 mg/dL (8.4-10.5); CARBON DIOXIDE 25 mmol/L (21-33); CHLORIDE 105 mmol/L (98-107); GFR AFRICAN-AMERICAN > 60; GLUCOSE,RANDOM 100 mg/dL (70-110); MAGNESIUM 1.8 mg/dL (1.7-2.2); PHOSPHOROUS 3.1 mg/dL (2.5-4.5); POTASSIUM 3.6 mmol/L (3.6-5.0); SODIUM 141 mmol/L (132-148); TOTAL PROTEIN 6.4 g/dL (5.8-8.3)
--- NOTE | 2016-12-06 15:30 | CT ---
PROCEDURE: CT scan brain dated 12/06/2016 HISTORY: Status post falls. COMPARISON: Comparison made with CT scan of the brain dated 08/20/2016 TECHNIQUE: Axial computed tomography images were obtained through the head/brain without intravenous contrast. Radiation dose: Total exam DLP = 869.39 mGy-cm. This CT exam was performed using one or more of the following dose reduction techniques: Automated exposure control, adjustment of the mA and/or kV according to patient size, and/or use of iterative reconstruction technique. FINDINGS: HEMORRHAGE: Current study reveals thin/relatively small but extensive of left-sided subdural hematoma which extends nearly from skullbase to vertex. There is mild mass effect most notably along the left inferior mid frontal region with mild compressive effects on subjacent sulci. . BRAIN: Minor chronic periventricular white matter ischemic changes are felt to be present. No evidence of large acute infarct so far as can be seen. Mild generalized volume loss. Minor vascular calcifications are present. VENTRICLES: No evidence of obstructive hydrocephalus. CALVARIUM: No acute calvarial fractures. PARANASAL SINUSES: Minimal mucosal thickening seen within the ethmoid air complex. Tiny focus polypoid like mucosal thickening left maxillary antrum. Bilateral nasal bone fracture deformities are present with overlying mild soft tissue swelling MASTOID AIR CELLS: Unremarkable as visualized. No inflammatory changes. OTHER FINDINGS: None. IMPRESSION: There is a small somewhat thin but extensive left-sided subdural hematoma which from nearly the skullbase to the vertex of with mild mass effect as described. These findings were discussed with Dr. Dumont at approximately 3:26 p.m. with written down and read back verification.
--- NOTE | 2016-12-06 15:36 | CT ---
PROCEDURE: CT scan maxillofacial skeleton dated 12/06/2016 HISTORY: s/p falls COMPARISON: Comparison made with concurrent CT scan maxillofacial skeleton/brain TECHNIQUE: Contiguous axial CT images of the maxillofacial bones were obtained. Coronal and sagittal reformats were generated. Radiation dose: Total exam DLP = 863.8 mGy-cm. This CT exam was performed using one or more of the following dose reduction techniques: Automated exposure control, adjustment of the mA and/or kV according to patient size, and/or use of iterative reconstruction technique. FINDINGS: NASAL BONES: There are bilateral nasal bone fractures left more significantly displaced than the right. Overlying soft tissue swelling. There appears to be slight leftward deviation of the nasal septum as well. Mild submucosal hemorrhage felt be present within the septum and more so on the left than right. ORBITS: Bony orbits appear intact. . . Orbital contents unremarkable. Globes intact and lenses appropriately located. There are no retrobulbar hemorrhages or collections. Optic nerves and extraocular musculature unremarkable. PARANASAL SINUSES/ MASTOIDS: The paranasal sinuses are well-developed and currently relatively well-aerated. There are no fluid levels seen to suggest acute hemorrhage or sinusitis. Minor mucosal thickening seen within the left maxillary sinus. Minimal mucosal thickening also noted within the ethmoid air complex extending superiorly into the inferior margins of the frontal sinus. MAXILLA: The maxilla including the anterior nasal spine intact MANDIBLE/ TEMPOROMANDIBULAR JOINTS: Mandible intact without evidence of displacement/ dislocation of the mandibular condyles. SKULL BASE: Skull base appears intact so far as can be seen TEMPORAL BONES: Middle ears are not visualized OTHER FINDINGS: Re- demonstrated is a left-sided subdural hematoma most pronounced in the left anterior inferior mid frontal region. IMPRESSION: Bilateral nasal bone fractures left-sided which appears on comminuted and significantly displaced to the right side with overlying soft tissue swelling. . . There is also presumed submucosal hemorrhage within the anterior nasal septum left greater than right. Left-sided subdural hematoma. Please refer to CT scan of the brain for additional details.
--- NOTE | 2016-12-06 15:47 | CT ---
PROCEDURE: CT cervical spine dated 12/06/2016 HISTORY: Trauma COMPARISON: No prior study available for comparison TECHNIQUE: Axial computed tomography images were obtained of the cervical spine without the use of intravenous contrast. Coronal and sagittal reformatted images were created and reviewed. Radiation dose: Total exam DLP = 442.11 mGy-cm. This CT exam was performed using one or more of the following dose reduction techniques: Automated exposure control, adjustment of the mA and/or kV according to patient size, and/or use of iterative reconstruction technique. FINDINGS: VERTEBRAE: The current study reveals no acute compression fractures no retropulsed fragments. Vertebral bodies exhibit normal stature. There is straightening of the normal cervical lordosis which could be due to patient positioning gantry however underlying element of muscle spasm may contribute. Vertebral bodies otherwise exhibit normal alignment. Facets normally aligned. DISCS/SPINAL CANAL/NEURAL FORAMINA: Multilevel degenerative spondylosis. At the C2-C3 level, there is mild disc space narrowing most pronounced along the posterior disc margin with small broad-based disc bulge ridge complex associated with some calcification along the posterior annulus . . Changes result in mild canal narrowing and presumed mild cord compression. Uncovertebral joints are hypertrophic left greater than right as are the facets with left-sided foraminal stenosis. Right exit foramen is marginal to adequate. At the C3-C4 level, there is relatively adequate disc height. Mild broad-based bulge of the posterior annulus present. The uncovertebral joints are slightly hypertrophic left greater than right. Facets also quite hypertrophic on the left and minimally hypertrophic on the right. Changes result in mild flattening of the ventral surface of the thecal sac and minimal if any flattening of the ventral surface of the cord. Central canal appears marginal to adequate. Exit foramina are stenotic bilaterally left greater than right. At the C4-C5 level, there is disc space narrowing with minimal of disc bulge ridge complex. The uncovertebral joints are mildly hypertrophic. Facets also overgrown left greater than right. Central canal appears slightly narrowed with mild flattening of the ventral surface of the spinal cord. Exit foramina are narrowed bilaterally. At the C5-C6 and C6-C7 levels, there is also disc space narrowing, endplate eburnation with small to medium-sized osteophytic ridge disc complexes largest at the C6-C7 level. Changes result in canal narrowing and cord compression as well as bilateral foraminal stenosis. . Consider followup MRI if further evaluation is required. PARASPINAL SOFT TISSUES: Prevertebral and paraspinal soft tissues unremarkable. OTHER FINDINGS: Lung apices clear. IMPRESSION: No acute fractures. Multilevel degenerative spondylosis most significantly affecting the lower two cervical levels as described. . Consider followup MRI if further evaluation is required.
--- NOTE | 2016-12-06 16:06 | RAD ---
PROCEDURE: Radiographs of the Lumbar Spine. HISTORY: s/p falls COMPARISON: Comparison made with CT scan lumbar spine 10/18/2015. FINDINGS: BONES: No acute compression fractures no retropulsed fragments. . Minor chronic appearing anterior stature loss of the L1, L2 and L4 segments felt to be degenerative in origin unchanged from prior study. Re- demonstrated are bilateral laminectomy defects L4-L5 level and posterior fixation accomplished by in situ short-segment bilateral Bello rods attached to the right and left pedicles of the L4-L5 segments. There is mild levo rotoscoliosis centered at the L3-L4 level. DISC SPACES: Multilevel degenerative spondylosis OTHER FINDINGS: None. IMPRESSION: No acute fractures. Bilateral laminectomy with posterior fixation as described. Multilevel degenerative spondylosis as described.
--- NOTE | 2016-12-06 16:09 | RAD ---
HISTORY: s/p falls COMPARISON: Comparison made with CT scan of the chest abdomen pelvis dated 06/22/2015 which image the thoracic spine in 3 planes. FINDINGS: BONES: No acute compression fractures no retropulsed fragments. Minor anterior stature loss of 1 or 2 mid thoracic segments likely degenerative in origin with [place] endplate deformities involving several lower thoracic segments The vertebral bodies otherwise exhibit normal stature DISC SPACES: Mild multilevel degenerative spondylosis. Changes include mild anterior disc space narrowing with varying (small- medium sized) anterolateral osteophytes largest in the mid to lower thoracic region. SOFT TISSUES: Normal. OTHER FINDINGS: None. IMPRESSION: No acute fractures. Multilevel degenerative spondylosis.
--- NOTE | 2016-12-06 16:25 | RAD ---
PROCEDURE: Right Knee Radiographs. HISTORY: s/p falls COMPARISON: None. FINDINGS: BONES: No evidence of acute displaced fracture nor dislocation. JOINTS: Joint spaces are relatively preserved however there does appear to be subtle calcification within the medial and questionably within the lateral joint spaces suggesting chondrocalcinosis; rule out CPPD. JOINT EFFUSION: None. OTHER FINDINGS: Vascular clips are seen within the soft tissues on the frontal projection ; clinical correlation with surgical history IMPRESSION: No acute fracture seen. Findings suggest chondrocalcinosis; rule out CPPD Vascular clips are present within soft tissues; clinical correlation with surgical history.
--- NOTE | 2016-12-06 17:14 | RAD ---
PROCEDURE: Radiographs of the Chest and Right Ribs. HISTORY: s/p falls COMPARISON: None available. TECHNIQUE: Frontal radiograph of the chest and multiple oblique radiographs of the right ribs were obtained. FINDINGS: RIGHT RIBS: There are acute mildly displaced fractures in the right posterolateral ninth, 10th and 11th ribs. LUNGS: The right lung is well inflated and clear. PLEURA: No pneumothorax or pleural fluid. CARDIOVASCULAR: Normal sized heart. No pulmonary vascular congestion. OTHER FINDINGS: None. IMPRESSION: Acute mildly displaced fractures in the right posterolateral 9th, 10th and 11th ribs. No pneumothorax.
--- NOTE | 2016-12-06 17:44 | CP.CCUPN ---
CCU Subjective - Physician Review Events Since Last Encounter (Free Text): 12/06/16 17:39 71 y/o M who presented after mechanical fall at home. The patient has SSP and has been dealing with gait abnormalities and suffered a fall without LOC. The patient came to the ER and had imaging done which showed a new small SDH. Pt is currently aao x 3 w/o any complaints outside of pain. CCU Objective - Vital Signs / Intake & Output Vital Signs (Last 4 hours): Vital Signs Pulse Resp BP 12/06/16 17:10 80 18 128/76 - Physical Exam Head: Positive for: Atraumatic, Normocephalic Pupils: Positive for: PERRL Conjunctiva: Positive for: Normal Mouth: Positive for: Moist Mucous Membranes Nose (External): Positive for: Abrasion Neck: Positive for: Normal Range of Motion, Paraspinal Tenderness Respiratory/Chest: Positive for: Good Air Exchange. Negative for: Accessory Muscle Use Cardiovascular: Positive for: Regular Rate and Rhythm, Normal S1, S2 Abdomen: Positive for: Normal Bowel Sounds. Negative for: Tenderness, Distention Back: Positive for: Other (tenderness along posterior right ribcage). Negative for: Midline Tenderness Upper Extremity: Positive for: Normal Inspection, NORMAL PULSES, Other ( multiple abrasions in different stages of healing bilaterally). Negative for: Edema Lower Extremity: Positive for: Normal Inspection, NORMAL PULSES, Other ( multiple abrasions in different stages of healing bilaterally). Negative for: Edema, CALF TENDERNESS Neurological: Positive for: GCS=15, CN II-XII Intact, Motor Func Grossly Intact , Other (Bilateral clonus in lower extremities. Plantar responses up-going. Partial left foot drop. Right foot drop with early stages of plantarflexion contracture.). Negative for: Speech Normal (hypophonic) Skin: Positive for: Warm, Dry Psychiatric: Positive for: Alert, Oriented x 3 - Medications Active Medications: Active Medications Generic Name Dose Route Start Last Admin Trade Name Freq PRN Reason Stop Dose Admin Acetaminophen 1,000 mg in 100 mls @ 400 mls/hr 12/06/16 17:37 Ofirmev IVPB 12/08/16 17:38 Q6H PRN Pain, moderate (4-7) Review of Systems - EENT Eyes: UNREMARKABLE Ears: UNREMARKABLE Nose/Mouth/Throat: UNREMARKABLE - Cardiovascular Cardiovascular: UNREMARKABLE - Respiratory Respiratory: UNREMARKABLE - Gastrointestinal Gastrointestinal: UNREMARKABLE - Genitourinary Genitourinary: UNREMARKABLE - Musculoskeletal Musculoskeletal: Muscle Cramps, Muscle Weakness, Myalgias - Neurological Neurological: Frequent Falls Assessment/Plan - Assessment and Plan (Free Text) Assessment: 71 y/o M w/ SSP Chronic falls at home. Suffered another fall at home w/ new rib fx's and abrasions and facial trauma. New SDH. Case d/w Neurosurgery. Plan to observe . Q [address] in 24 hrs. BP controll keep SBp 14-160 Restart hoem medications for SSp. Levo/carb, lexapro, muscle relaxant. dvt P scd Neurology and neurosurgery consult. cc time 55 min
--- NOTE | 2016-12-06 18:42 | CARD ---
APPROVED REPORT EKG Measurement Heart [id number] HI [id number] <Conclusion> Normal sinus rhythm Left axis deviation Abnormal ECG
[2016-12-06] MEDS: Carbidopa/Levodopa 25/250 PO SCH (19:14)
[2016-12-07 07:05] LABS: BASO # 0.03 K/mm3 (0.0-2.0); BASO % 0.5 % (0.0-3.0); EOS # 0.1 (0.0-0.7); EOS % 1.5 % (1.5-5.0); GRAN # 3.94 (1.4-6.5); GRAN % 67.1 % (50.0-68.0); HEMATOCRIT 36.7 % (42.0-52.0); LYMPH % 16.9 % (22.0-35.0); MEAN CELL VOLUME 86.4 fl (80.0-105.0); MEAN CORPUSCULAR HEMOGLOBIN 27.8 pg (25.0-35.0); MEAN CORPUSCULAR HGB CONC 32.2 g/dl (31.0-37.0); MEAN PLATELET VOLUME 10.2 fl (7.0-11.0); MONO # 0.8 (0.1-0.6); RED CELL DISTRIBUTION WIDTH 14.4 % (11.5-14.5); WHITE BLOOD COUNT 5.9 10^3/ul (4.5-11.0)
[2016-12-07 07:32] LABS: BLOOD UREA NITROGEN 15 mg/dL (7-21); CALCIUM 8.7 mg/dL (8.4-10.5); CARBON DIOXIDE 28 mmol/L (21-33); CHLORIDE 105 mmol/L (98-107); GFR AFRICAN-AMERICAN > 60; GLUCOSE,RANDOM 82 mg/dL (70-110); MAGNESIUM 1.8 mg/dL (1.7-2.2); PHOSPHOROUS 2.7 mg/dL (2.5-4.5); POTASSIUM 3.5 mmol/L (3.6-5.0); SODIUM 141 mmol/L (132-148)
--- NOTE | 2016-12-07 08:58 | CP.CCUPN ---
<DEVIROZ - Last Filed: 12/07/16 11:27> CCU Subjective - Physician Review Subjective (Free Text): 12/07/16 08:55 Patient seen and assessed at bedside. Patient endorses continued chest pain on deep respiration on the right side, over the area he was noted to have fractured ribs. No acute events were reported overnight, per nursing. He denies fever, chills, headache, changes in his vision, dysphagia, chest pain, palpitations, shortness of breath, cough, abdominal pain, N/V, diarrhea, burning with urination, or any numbness/tingling/weakness of any extremity. CCU Objective - Vital Signs / Intake & Output Vital Signs (Last 4 hours): Vital Signs Pulse Resp BP Pulse Ox 12/07/16 06:00 67 16 120/72 98 12/07/16 05:00 68 20 125/63 100 Intake and Output (Last 8hrs): Intake & Output 12/06/16 12/07/16 12/07/16 22:59 06:59 14:59 Output Total 300 Balance -300 Output: Urine 300 Urine, Voided 300 - Physical Exam Head: Positive for: Atraumatic, Normocephalic Pupils: Positive for: PERRL Extroacular Muscles: Positive for: EOMI Conjunctiva: Positive for: Normal Mouth: Positive for: Moist Mucous Membranes Nose (External): Positive for: Abrasion, Contusion Neck: Positive for: Paraspinal Tenderness, Trachea Midline Respiratory/Chest: Positive for: Clear to Auscultation, Good Air Exchange, Tender to Palpation. Negative for: Respiratory Distress, Accessory Muscle Use Cardiovascular: Positive for: Regular Rate and Rhythm, Normal S1, S2. Negative for: Irregular Rhythm, Tachycardic, Bradycardic Abdomen: Positive for: Normal Bowel Sounds. Negative for: Tenderness, Distention, Peritoneal Signs Back: Positive for: Other (tenderness along posterior right ribcage). Negative for: Midline Tenderness Upper Extremity: Positive for: Normal Inspection, NORMAL PULSES, Other ( multiple abrasions in different stages of healing bilaterally). Negative for: Edema Lower Extremity: Positive for: Normal Inspection, NORMAL PULSES, Other ( multiple abrasions in different stages of healing bilaterally). Negative for: Edema, CALF TENDERNESS Neurological: Positive for: GCS=15, CN II-XII Intact, Motor Func Grossly Intact , Other (Resting tremor in RUE). Negative for: Speech Normal (hypophonic) Skin: Positive for: Warm, Dry Psychiatric: Positive for: Alert, Oriented x 3 - Medications Active Medications: Active Medications Generic Name Dose Route Start Last Admin Trade Name Freq PRN Reason Stop Dose Admin Carbidopa/Levodopa 1 tab 12/06/16 18:00 12/06/16 19:14 Sinemet PO 1 tab TID CARLOS Administration Escitalopram Oxalate 10 mg 12/07/16 10:00 Lexapro PO DAILY CARLOS Hydralazine HCl 10 mg 12/06/16 18:13 Apresoline IVP Q6 PRN Systolic Blood Pressure Acetaminophen 1,000 mg in 100 mls @ 400 mls/hr 12/06/16 17:37 12/06/16 18:01 Ofirmev IVPB 12/08/16 17:38 400 mls/hr Q6H PRN Administration Pain, moderate (4-7) Potassium Chloride 10 meq in 100 mls @ 100 mls/hr 12/07/16 08:00 Potassium Chloride 10 Meq/100 Ml IVPB 12/07/16 10:59 Q2H CARLOS Losartan Potassium 100 mg 12/07/16 10:00 Cozaar PO DAILY CARLOS Pantoprazole Sodium 40 mg 12/07/16 10:00 Protonix Inj IVP DAILY CARLOS Tamsulosin HCl 0.4 mg 12/07/16 10:00 Flomax PO DAILY CARLOS - Patient Studies Lab Studies: Lab Studies 12/07/16 12/07/16 Range/Units 05:30 05:30 WBC 5.9 (4.5-11.0) 10^3/ul RBC 4.25 (3.5-6.1) 10^6/uL Hgb 11.8 L (14.0-18.0) g/dL Hct 36.7 L (42.0-52.0) % MCV 86.4 (80.0-105.0) fl MCH 27.8 (25.0-35.0) pg MCHC 32.2 (31.0-37.0) g/dl RDW 14.4 (11.5-14.5) % Plt Count 173 (120.0-450.0) 10^3/uL MPV 10.2 (7.0-11.0) fl Gran % 67.1 (50.0-68.0) % Lymph % (Auto) 16.9 L (22.0-35.0) % [place] % (Auto) 14.0 H (1.0-6.0) % Eos % (Auto) 1.5 (1.5-5.0) % Baso % (Auto) 0.5 (0.0-3.0) % Gran # 3.94 (1.4-6.5) Lymph # 1.0 L (1.2-3.4) [place] # 0.8 H (0.1-0.6) Eos # 0.1 (0.0-0.7) Baso # 0.03 (0.0-2.0) K/mm3 Sodium 141 (132-148) mmol/L Potassium 3.5 L (3.6-5.0) mmol/L Chloride 105 (98-107) mmol/L Carbon Dioxide 28 (21-33) mmol/L Anion Gap 12 (10-20) BUN 15 (7-21) mg/dL Creatinine 0.9 (0.5-1.4) mg/dL Est GFR ( Amer) > 60 Est GFR (Non-Af Amer) > 60 Random Glucose 82 (70-110) mg/dL Calcium 8.7 (8.4-10.5) mg/dL Phosphorus 2.7 (2.5-4.5) mg/dL Magnesium 1.8 (1.7-2.2) mg/dL Laboratory Results - last 24 hr 12/07/16 12/07/16 05:30 05:30 WBC 5.9 RBC 4.25 Hgb 11.8 L Hct 36.7 L MCV 86.4 MCH 27.8 MCHC 32.2 RDW 14.4 Plt Count 173 MPV 10.2 Gran % 67.1 Lymph % (Auto) 16.9 L [place] % (Auto) 14.0 H Eos % (Auto) 1.5 Baso % (Auto) 0.5 Gran # 3.94 Lymph # 1.0 L [place] # 0.8 H Eos # 0.1 Baso # 0.03 Sodium 141 Potassium 3.5 L Chloride 105 Carbon Dioxide 28 Anion Gap 12 BUN 15 Creatinine 0.9 Est GFR ( Amer) > 60 Est GFR (Non-Af Amer) > 60 Random Glucose 82 Calcium 8.7 Phosphorus 2.7 Magnesium 1.8 Review of Systems - Review of Systems Review of Systems: Please refer to HPI Critical Care Progress Note - Ventilator Checklist PUD Prophalyxis: Yes DVT Prophylaxis: Yes - Extremities/Vascular Does the Patient have a Central Venous Catheter?: No Does the Patient need a Central Venous Catheter?: No Does the Patient have a Hutson Catheter?: No Does the Patient need a Hutson Catheter?: No - Prophylaxis GI Prophylaxis GI: PPI - Prophylaxis DVT Prophylaxis DVT: SCDs - Nutrition Nutrition: Nutrition Category Date Time Status NPO Diet [DIET] Diets 12/06/16 Dinner Ordered Assessment/Plan - Assessment and Plan (Free Text) Assessment: 71 year old male with a past medical history significant for progressive supranuclear palsy, HTN and anxiety who presented to the ICU for a SDH confirmed with CT head after a mechanical fall. Patient is hemodynamically stable with no change in his neurologic status. Plan: Neuro: -CT Head showed small somewhat thin but extensive left-sided subdural hematoma from nearly the skull base to the vertex with mild mass effect -Repeat CT Head pending - CT showing fracture of right nasal bone -Continue Sinemet and Hydralazine PRN -Swallow evaluation and treatment for diet recommendations pending -Continue Q1H neurochecks, fall and aspiration precautions -Neurology and Neurosurgery consulted, all recommendations appreciated Pulm: -Maintain oxygen saturation above 92% Cardio: -Continue Cozaar GI: -Start D5W/NS at 100mls/hr -Continue Protonix -Full Liquid Diet; Will reevaluate after swallow evaluation Renal: -BUN/Creatinine stable at 15/0.9 -Continue to monitor and replenish electrolytes as indicated with daily BMP's, magnesium and phosphorous Endo: -Maintain euglycemia with blood glucose between 140 and 180 Heme/Onc: -Not a candidate for pharmacotherapy for DVT prevention with ICH -Continue SCD's MSK: -Rib X-Ray showed acute mildly displaced fractures in right posteriolateral 9- 11 ribs -Knee X-Ray, Lumbar, Thoracic and Cervical showing no acute fractures or changes from fall -Continue Ofirmev for pain control -PT/OT to evaluate and treat ID: -Currently afebrile, normotensive, with no leukocytosis or tachycardia Psych: -Continue Lexapro Lines: -Continue all peripheral lines GI Prophylaxis: Protonix DVT Prophylaxis: SCD's Disposition: Patient hemodynamically stable and will likely be transferred to telemetry care pending results of further monitoring. Patient seen and case discussed with attending, Dr. Hines. - Date & Time Date: 12/07/16 Time: 09:00 <Parekr Hines MD H - Last Filed: 12/07/16 14:52> CCU Objective - Vital Signs / Intake & Output Vital Signs (Last 4 hours): Vital Signs Pulse 12/07/16 14:00 80 Intake and Output (Last 8hrs): Intake & Output 12/06/16 12/07/16 12/07/16 22:59 06:59 14:59 Output Total 300 Balance -300 Weight 130 lb Output: Urine 300 Urine, Voided 300 - Medications Active Medications: Active Medications Generic Name Dose Route Start Last Admin Trade Name Freq PRN Reason Stop Dose Admin Carbidopa/Levodopa 1 tab 12/06/16 18:00 12/07/16 14:46 Sinemet PO 1 tab TID CARLOS Administration Escitalopram Oxalate 10 mg 12/07/16 10:00 12/07/16 09:16 Lexapro PO 10 mg DAILY CARLOS Administration Hydralazine HCl 10 mg 12/06/16 18:13 Apresoline IVP Q6 PRN Systolic Blood Pressure Acetaminophen 1,000 mg in 100 mls @ 400 mls/hr 12/06/16 17:37 12/07/16 08:58 Ofirmev IVPB 12/08/16 17:38 400 mls/hr Q6H PRN Administration Pain, moderate (4-7) Dextrose/Sodium Chloride 1,000 mls @ 100 mls/hr 12/07/16 10:30 12/07/16 10:25 Dextrose 5%/0.9% Ns 1000 Ml IV 100 mls/hr .Q10H CARLOS Administration Losartan Potassium 100 mg 12/07/16 10:00 12/07/16 09:16 Cozaar PO 100 mg DAILY CARLOS Administration Pantoprazole Sodium 40 mg 12/07/16 10:00 12/07/16 09:16 Protonix Inj IVP 40 mg DAILY CARLOS Administration Tamsulosin HCl 0.4 mg 12/07/16 10:00 12/07/16 09:16 Flomax PO 0.4 mg DAILY CARLOS Administration - Patient Studies Lab Studies: Lab Studies 12/07/16 12/07/16 Range/Units 05:30 05:30 WBC 5.9 (4.5-11.0) 10^3/ul RBC 4.25 (3.5-6.1) 10^6/uL Hgb 11.8 L (14.0-18.0) g/dL Hct 36.7 L (42.0-52.0) % MCV 86.4 (80.0-105.0) fl MCH 27.8 (25.0-35.0) pg MCHC 32.2 (31.0-37.0) g/dl RDW 14.4 (11.5-14.5) % Plt Count 173 (120.0-450.0) 10^3/uL MPV 10.2 (7.0-11.0) fl Gran % 67.1 (50.0-68.0) % Lymph % (Auto) 16.9 L (22.0-35.0) % [place] % (Auto) 14.0 H (1.0-6.0) % Eos % (Auto) 1.5 (1.5-5.0) % Baso % (Auto) 0.5 (0.0-3.0) % Gran # 3.94 (1.4-6.5) Lymph # 1.0 L (1.2-3.4) [place] # 0.8 H (0.1-0.6) Eos # 0.1 (0.0-0.7) Baso # 0.03 (0.0-2.0) K/mm3 Sodium 141 (132-148) mmol/L Potassium 3.5 L (3.6-5.0) mmol/L Chloride 105 (98-107) mmol/L Carbon Dioxide 28 (21-33) mmol/L Anion Gap 12 (10-20) BUN 15 (7-21) mg/dL Creatinine 0.9 (0.5-1.4) mg/dL Est GFR ( Amer) > 60 Est GFR (Non-Af Amer) > 60 Random Glucose 82 (70-110) mg/dL Calcium 8.7 (8.4-10.5) mg/dL Phosphorus 2.7 (2.5-4.5) mg/dL Magnesium 1.8 (1.7-2.2) mg/dL Laboratory Results - last 24 hr 12/07/16 12/07/16 05:30 05:30 WBC 5.9 RBC 4.25 Hgb 11.8 L Hct 36.7 L MCV 86.4 MCH 27.8 MCHC 32.2 RDW 14.4 Plt Count 173 MPV 10.2 Gran % 67.1 Lymph % (Auto) 16.9 L [place] % (Auto) 14.0 H Eos % (Auto) 1.5 Baso % (Auto) 0.5 Gran # 3.94 Lymph # 1.0 L [place] # 0.8 H Eos # 0.1 Baso # 0.03 Sodium 141 Potassium 3.5 L Chloride 105 Carbon Dioxide 28 Anion Gap 12 BUN 15 Creatinine 0.9 Est GFR ( Amer) > 60 Est GFR (Non-Af Amer) > 60 Random Glucose 82 Calcium 8.7 Phosphorus 2.7 Magnesium 1.8 Critical Care Progress Note - Nutrition Nutrition: Nutrition Category Date Time Status Pureed [Dysphagia/Modified Consistency Diet] [DIET] Diets 12/07/16 Lunch Ordered Attending/Attestation - Attestation I have personally seen and examined this patient.: Yes I have fully participated in the care of the patient.: Yes I have reviewed all pertinent clinical information: Yes Notes (Text): 12/07/16 14:50 71 y/o M w/ SDH Stable with repeat Ct head. Cleared by NSG. No intervention planned Transfer to Med/ srg cc time 45 min
--- NOTE | 2016-12-07 09:22 | CP.PCM.HP ---
History of Present Illness - History of Present Illness History of Present Illness: 71 yo male history of Progressive Supranuclear Palsy presents to ED with c/o recurrent falls and R leg weakness over past couple days. MRI brain with SDH and patient admitted to ICU for further OBS and mgmt. No SZ or LOC reported. Pt awake and responsive at present. Denies headache, no N/V, no vision changes Present on Admission - Present on Admission Any Indicators Present on Admission: No Review of Systems - Musculoskeletal Musculoskeletal: Abnormal Gait, Arthralgias, Back Pain, Muscle Weakness, Neck Pain, Stiffness - Neurological Neurological: Abnormal Gait, Abnormal Speech, Behavioral Changes, Numbness, Frequent Falls, Lack of Coordination, Radicular Pain, Tingling, Tremor, Weakness Past Patient History - Past Social History Smoking Status: Never Smoked - CARDIAC Hx Hypertension: Yes - NEUROLOGICAL HX Cerebrovascular Accident: Yes (drags right foot) - HEMATOLOGICAL/ONCOLOGICAL Hx Blood Transfusions: No Hx Blood Transfusion Reaction: No - INTEGUMENTARY Other/Comment: scrape under left forearm, multiple r knee abrasions - MUSCULOSKELETAL/RHEUMATOLOGICAL Hx Arthritis: Yes - PSYCHIATRIC Hx Emotional Abuse: No Hx Physical Abuse: No Hx Substance Use: Yes (marijuana stopped can't remember when) - SURGICAL HISTORY Hx Cholecystectomy: Yes - ANESTHESIA Hx Anesthesia: Yes Hx Anesthesia Reactions: No Hx Malignant Hyperthermia: No Meds Allergies/Adverse Reactions: Allergies Allergy/AdvReac Type Severity Reaction Status Date / Time No Known Allergies Allergy Verified 08/20/16 09:25 Physical Exam - Head Exam Head Exam: ATRAUMATIC, NORMOCEPHALIC - Eye Exam Eye Exam: EOMI, PERRL - ENT Exam ENT Exam: Mucous Membranes Moist - Neck Exam Neck exam: Positive for: Normal Inspection - Respiratory Exam Respiratory Exam: Clear to Auscultation Bilateral, NORMAL BREATHING PATTERN - Cardiovascular Exam Cardiovascular Exam: REGULAR RHYTHM - GI/Abdominal Exam GI & Abdominal Exam: Normal Bowel Sounds, Soft - Extremities Exam Extremities exam: Positive for: normal inspection - Back Exam Back exam: NORMAL INSPECTION - Neurological Exam Neurological exam: Abnormal Gait, Alert - Expanded Neurological Exam Expanded Neurological exam: Ataxia, Tremor Results - Vital Signs Recent Vital Signs: Last Vital Signs Temp 98.1 F 12/07/16 04:00 Pulse 67 12/07/16 06:00 Resp 16 12/07/16 06:00 BP 120/72 12/07/16 06:00 Pulse Ox 98 12/07/16 06:00 - Labs Result Diagrams: 12/07/16 05:30 12/07/16 05:30 Labs: Laboratory Results - last 24 hr 12/07/16 12/07/16 05:30 05:30 WBC 5.9 RBC 4.25 Hgb 11.8 L Hct 36.7 L MCV 86.4 MCH 27.8 MCHC 32.2 RDW 14.4 Plt Count 173 MPV 10.2 Gran % 67.1 Lymph % (Auto) 16.9 L [place] % (Auto) 14.0 H Eos % (Auto) 1.5 Baso % (Auto) 0.5 Gran # 3.94 Lymph # 1.0 L [place] # 0.8 H Eos # 0.1 Baso # 0.03 Sodium 141 Potassium 3.5 L Chloride 105 Carbon Dioxide 28 Anion Gap 12 BUN 15 Creatinine 0.9 Est GFR ( Amer) > 60 Est GFR (Non-Af Amer) > 60 Random Glucose 82 Calcium 8.7 Phosphorus 2.7 Magnesium 1.8 Assessment & Plan (1) Subdural hematoma Status: Acute (2) Progressive supranuclear palsy Status: Chronic (3) Hypertension Status: Chronic (4) Spinal stenosis Status: Acute - Assessment and Plan (Free Text) Plan: for Neuro and NSGY eval, continue ICU monitoring, - Date & Time Date: 12/07/16 Time: 09:00
[2016-12-07] MEDS ORDERED: Potassium Chloride 40 mEq/30 ml LIQ UD PO ONE (10:01)
--- NOTE | 2016-12-07 10:02 | CT ---
PROCEDURE: CT HEAD WITHOUT CONTRAST. HISTORY: SDH COMPARISON: 12/06/2016. TECHNIQUE: Axial computed tomography images were obtained through the head/brain without intravenous contrast. Radiation dose: Total exam DLP = 712.63 mGy-cm. This CT exam was performed using one or more of the following dose reduction techniques: Automated exposure control, adjustment of the mA and/or kV according to patient size, and/or use of iterative reconstruction technique. FINDINGS: HEMORRHAGE: There is interval expected evolution and mild decrease in size of left acute on subacute convexity subdural hematoma which now measures 4-5 mm in maximum width. There is mild mass effect on the underlying cerebral hemisphere and mild effacement of the cortical sulci. No midline shift or herniation. BRAIN: There are mild chronic microangiopathic changes. No territorial infarction. VENTRICLES: There is mild age-related global parenchymal volume loss and proportionate enlargement of the ventricles and cortical sulci. . CALVARIUM: The skull base and calvarium are normal. PARANASAL SINUSES: Predominantly clear. MASTOID AIR CELLS: Predominantly clear. OTHER FINDINGS: None. IMPRESSION: Interval evolution and mild decrease in size of left sided acute on chronic convexity subdural hematoma which now measures 4-5 mm in maximum with. Mild mass effect and effacement of cortical sulci without herniation, midline shift or hydrocephalus.
--- NOTE | 2016-12-07 10:17 | CP.PCM.PN ---
Subjective - Date & Time of Evaluation Date of Evaluation: 12/07/16 Time of Evaluation: 10:16 - Subjective Subjective: full consult dictated stable acute over chronic l eft sdh neuro intact ok to transfer from ICU and plan d/c when otherwise medicallly clear Objective - Vital Signs/Intake and Output Vital Signs (last 24 hours): Temp Pulse Resp BP Pulse Ox 98.1 F 80 16 120/72 98 12/07/16 04:00 12/07/16 09:16 12/07/16 06:00 12/07/16 06:00 12/07/16 06:00 Intake and Output: 12/07/16 12/07/16 06:59 18:59 Output Total 300 Balance -300 - Medications Medications: Current Medications Carbidopa/Levodopa (Sinemet) 1 tab PO TID [facility] Last Admin: 12/06/16 19:14 Dose: 1 tab Escitalopram Oxalate (Lexapro) 10 mg PO DAILY [facility] Last Admin: 12/07/16 09:16 Dose: 10 mg Hydralazine HCl (Apresoline) 10 mg IVP Q6 PRN PRN Reason: Systolic Blood Pressure Acetaminophen (Ofirmev) 1,000 mg in 100 mls @ 400 mls/hr IVPB Q6H PRN PRN Reason: Pain, moderate (4-7) Stop: 12/08/16 17:38 Last Admin: 12/07/16 08:58 Dose: 400 mls/hr Losartan Potassium (Cozaar) 100 mg PO DAILY [facility] Last Admin: 12/07/16 09:16 Dose: 100 mg Pantoprazole Sodium (Protonix Inj) 40 mg IVP DAILY [facility] Last Admin: 12/07/16 09:16 Dose: 40 mg Tamsulosin HCl (Flomax) 0.4 mg PO DAILY [facility] Last Admin: 12/07/16 09:16 Dose: 0.4 mg - Labs Labs: 12/07/16 05:30 12/07/16 05:30
[2016-12-07] MEDS ORDERED: Dextrose 5%/0.9% NS 1,000 ML IV SCH (10:30)
[2016-12-07] MEDS: Carbidopa/Levodopa 25/250 PO SCH ×3 (10:31→18:37)
--- NOTE | 2016-12-07 14:22 | CON ---
DATE: 12/07/2016 HISTORY OF PRESENT ILLNESS: A 71-year-old male with progressive supranuclear palsy, presented to the emergency room with history of recurrent falls. Fell again. Has right leg weakness over the past few days. CT of the brain shows a small left acute over chronic subdural. Repeat CAT scan this morning shows that there has been actually a small evolution in decrease in the size of the subdural. On admission, the patient was awake, alert, oriented. He had multiple other soft tissue injuries as a result of the fall. PAST MEDICAL HISTORY AND REVIEW OF SYSTEMS: Significant for abnormal gait. The rest of his medical history was reviewed. He does have chronic hypertension and lumbar spinal stenosis. PHYSICAL EXAMINATION: GENERAL: His examination today finds him awake, alert, oriented. HEENT: His pupils are equal. His EOM's appear full; however. at rest there is some disconjugate gaze. NEUROLOGIC: His strength is good. He has no drift. No elicitable sensory deficit and reflexes are 2/4. PLAN: At this time, he has stable, small, chronic over acute subdural hematoma. This is not a Tyrese Tavarez MD
--- NOTE | 2016-12-07 15:03 | CP.PCM.CON ---
<Jose LuisAiden cochran - Last Filed: 12/07/16 19:11> History of Present Illness - History of Present Illness History of Present Illness: Neurology Consult Note for Dr. 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 He was later found to have a thin but extensive SDH on head CT. Neurosurgery was also consulted, but recommends no surgical intervention at this time. At time of exam, patient is resting in bed mostly comfortably, but complaining of pain in his R hip. He denies dragging his right foot, and instead reports that these most recent falls were because the walker he uses at home has a leg that keeps getting stuck , and he loses his balance frequently when trying to loosen the stuck leg. Patient denies any loss of syncope. He also denies chest pain, shortness of breath, acute vision changes, nausea/emesis, or diarrhea. Admits to intermittent back pain, and currently, persisting R hip pain, which he states is 2/2 the falls. All other ROS in 12-point system review were negative. PMH: as above, additionally cervical spinal stenosis PSH: Cholecystectomy, Laminectomy for spinal stenosis PSH: Denies tobacco/alcohol, admits to former infrequent marijuana use (denies current use in > 3 months) FHx: denies PMD: Dr. Arriola. Review of Systems - Review of Systems All systems: reviewed and no additional remarkable complaints except (as per HPI ) Past Patient History - Past Social History Smoking Status: Never Smoked - CARDIAC Hx Hypertension: Yes - NEUROLOGICAL HX Cerebrovascular Accident: Yes (drags right foot) - HEMATOLOGICAL/ONCOLOGICAL Hx Blood Transfusions: No Hx Blood Transfusion Reaction: No - INTEGUMENTARY Other/Comment: scrape under left forearm, multiple r knee abrasions - MUSCULOSKELETAL/RHEUMATOLOGICAL Hx Arthritis: Yes - PSYCHIATRIC Hx Emotional Abuse: No Hx Physical Abuse: No Hx Substance Use: Yes (marijuana stopped can't remember when) - SURGICAL HISTORY Hx Cholecystectomy: Yes - ANESTHESIA Hx Anesthesia: Yes Hx Anesthesia Reactions: No Hx Malignant Hyperthermia: No Meds Allergies/Adverse Reactions: Allergies Allergy/AdvReac Type Severity Reaction Status Date / Time No Known Allergies Allergy Verified 08/20/16 09:25 - Medications Medications: Current Medications Carbidopa/Levodopa (Sinemet) 1 tab PO TID [facility] Last Admin: 12/07/16 14:46 Dose: 1 tab Escitalopram Oxalate (Lexapro) 10 mg PO DAILY [facility] Last Admin: 12/07/16 09:16 Dose: 10 mg Hydralazine HCl (Apresoline) 10 mg IVP Q6 PRN PRN Reason: Systolic Blood Pressure Acetaminophen (Ofirmev) 1,000 mg in 100 mls @ 400 mls/hr IVPB Q6H PRN PRN Reason: Pain, moderate (4-7) Stop: 12/08/16 17:38 Last Admin: 12/07/16 08:58 Dose: 400 mls/hr Dextrose/Sodium Chloride (Dextrose 5%/0.9% Ns 1000 Ml) 1,000 mls @ 100 mls/hr IV .Q10H [facility] Last Admin: 12/07/16 10:25 Dose: 100 mls/hr Losartan Potassium (Cozaar) 100 mg PO DAILY [facility] Last Admin: 12/07/16 09:16 Dose: 100 mg Pantoprazole Sodium (Protonix Inj) 40 mg IVP DAILY [facility] Last Admin: 12/07/16 09:16 Dose: 40 mg Tamsulosin HCl (Flomax) 0.4 mg PO DAILY [facility] Last Admin: 12/07/16 09:16 Dose: 0.4 mg Physical Exam - Constitutional Appears: Non-toxic, No Acute Distress - Head Exam Head Exam: ATRAUMATIC, NORMAL INSPECTION, NORMOCEPHALIC - Eye Exam Eye Exam: EOMI, Normal appearance, PERRL. absent: Conjunctival injection, Scleral icterus Pupil Exam: NORMAL ACCOMODATION, PERRL. absent: Fixed, Irregular, Unequal Additional comments: Seems to favor looking out of his left eye, keeping his R eye closed for a portion of the exam, but opens R eye on commands, visual marroquin and EOMI testing equal in both eyes - ENT Exam ENT Exam: Mucous Membranes Moist - Neck Exam Neck exam: Negative for: Lymphadenopathy, Thyromegaly - Respiratory Exam Respiratory Exam: Clear to Auscultation Bilateral, NORMAL BREATHING PATTERN. absent: Rales, Rhonchi, Wheezes - Cardiovascular Exam Cardiovascular Exam: REGULAR RHYTHM, RRR, +S1, +S2. absent: Bradycardia, Tachycardia, Irregular Rhythm, JVD, +S4 - GI/Abdominal Exam GI & Abdominal Exam: Normal Bowel Sounds, Soft. absent: Distended, Firm, Rigid , Tenderness - Extremities Exam Extremities exam: Positive for: normal inspection, pedal pulses present. Negative for: calf tenderness, joint swelling, pedal edema, tenderness - Neurological Exam Neurological exam: Alert, CN II-XII Intact, Oriented x3 Additional comments: awake and alert, following all commands appropriately sensory grossly intact and equal in all extremities Motor strength 4/5 in bilateral UE, bilateral plant operations vice president, and LLE, 3-4/5 RLE motor - Psychiatric Exam Psychiatric exam: Normal Affect, Normal Mood - Skin Skin Exam: Dry, Intact, Normal Color, Warm Results - Vital Signs Recent Vital Signs: Last Vital Signs Temp 98.1 F 12/07/16 04:00 Pulse 80 12/07/16 14:00 Resp 16 12/07/16 06:00 BP 120/72 12/07/16 06:00 Pulse Ox 98 12/07/16 06:00 - Labs Result Diagrams: 12/07/16 05:30 12/07/16 05:30 Labs: Laboratory Results - last 24 hr 12/07/16 12/07/16 05:30 05:30 WBC 5.9 RBC 4.25 Hgb 11.8 L Hct 36.7 L MCV 86.4 MCH 27.8 MCHC 32.2 RDW 14.4 Plt Count 173 MPV 10.2 Gran % 67.1 Lymph % (Auto) 16.9 L Park % (Auto) 14.0 H Eos % (Auto) 1.5 Baso % (Auto) 0.5 Gran # 3.94 Lymph # 1.0 L Park # 0.8 H Eos # 0.1 Baso # 0.03 Sodium 141 Potassium 3.5 L Chloride 105 Carbon Dioxide 28 Anion Gap 12 BUN 15 Creatinine 0.9 Est GFR ( Amer) > 60 Est GFR (Non-Af Amer) > 60 Random Glucose 82 Calcium 8.7 Phosphorus 2.7 Magnesium 1.8 Assessment & Plan - Assessment and Plan (Free Text) Assessment: This is a 71 yo M with PMH of 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 He was later found to have a thin but extensive SDH on head CT. Neurosurgery was also consulted, but recommends no surgical intervention at this time. His SDH is most likely due to his repeated falls, which are themselves likely due to his Progressive Supranuclear Palsy; may also have an element of deconditioning, as son reported to the ED staff that the patient has run out of home PT visits paid for by insurance. Standard management for the SDH, including BP control, temp control, and avoidance of antiplatelets, is indicated. There is no acute intervention indicated for his Progressive Supranuclear Palsy. He will likely need sub-acute rehab after stabilization and discharge. Plan: 1) Maintain SBP 120-130s, avoid aggressive decreases in BP to prevent watershed infarct, avoid persistently elevated BP to prevent worsened bleeding 2) Avoid antiplatelet agents for 3 weeks from time of bleed 3) Blood glucose 140-180 4) Keppra 250mg PO BID for seizure ppx given SDH 5) PT/OT, will likely need sub-acute rehab after discharge Patient reviewed and discussed with attending, Dr. Shankar. <Rodrigo Shankar - Last Filed: 12/07/16 22:45> Meds - Medications Medications: Current Medications Carbidopa/Levodopa (Sinemet) 1 tab PO TID [facility] Last Admin: 12/07/16 18:37 Dose: 1 tab Escitalopram Oxalate (Lexapro) 10 mg PO DAILY [facility] Last Admin: 12/07/16 09:16 Dose: 10 mg Hydralazine HCl (Apresoline) 10 mg IVP Q6 PRN PRN Reason: Systolic Blood Pressure Acetaminophen (Ofirmev) 1,000 mg in 100 mls @ 400 mls/hr IVPB Q6H PRN PRN Reason: Pain, moderate (4-7) Stop: 12/08/16 17:38 Last Admin: 12/07/16 08:58 Dose: 400 mls/hr Levetiracetam (Keppra) 250 mg PO BID [facility] Last Admin: 12/07/16 18:36 Dose: 250 mg Losartan Potassium (Cozaar) 100 mg PO DAILY [facility] Last Admin: 12/07/16 09:16 Dose: 100 mg Pantoprazole Sodium (Protonix Inj) 40 mg IVP DAILY [facility] Last Admin: 12/07/16 09:16 Dose: 40 mg Tamsulosin HCl (Flomax) 0.4 mg PO DAILY [facility] Last Admin: 12/07/16 09:16 Dose: 0.4 mg Results - Vital Signs Recent Vital Signs: Last Vital Signs Temp 98.1 F 12/07/16 04:00 Pulse 87 12/07/16 18:00 Resp 16 12/07/16 06:00 BP 120/72 12/07/16 06:00 Pulse Ox 98 12/07/16 06:00 - Labs Result Diagrams: 12/07/16 05:30 12/07/16 05:30 Labs: Laboratory Results - last 24 hr 12/07/16 12/07/16 05:30 05:30 WBC 5.9 RBC 4.25 Hgb 11.8 L Hct 36.7 L MCV 86.4 MCH 27.8 MCHC 32.2 RDW 14.4 Plt Count 173 MPV 10.2 Gran % 67.1 Lymph % (Auto) 16.9 L Park % (Auto) 14.0 H Eos % (Auto) 1.5 Baso % (Auto) 0.5 Gran # 3.94 Lymph # 1.0 L Park # 0.8 H Eos # 0.1 Baso # 0.03 Sodium 141 Potassium 3.5 L Chloride 105 Carbon Dioxide 28 Anion Gap 12 BUN 15 Creatinine 0.9 Est GFR ( Amer) > 60 Est GFR (Non-Af Amer) > 60 Random Glucose 82 Calcium 8.7 Phosphorus 2.7 Magnesium 1.8 Attending/Attestation - Attestation I have personally seen and examined this patient.: Yes I have fully participated in the care of the patient.: Yes I have reviewed all pertinent clinical information: Yes
[2016-12-08 06:07] LABS: BASO # 0.04 K/mm3 (0.0-2.0); BASO % 0.5 % (0.0-3.0); EOS # 0.1 (0.0-0.7); EOS % 0.8 % (1.5-5.0); GRAN # 5.94 (1.4-6.5); GRAN % 77.7 % (50.0-68.0); HEMATOCRIT 36.3 % (42.0-52.0); LYMPH # 0.9 (1.2-3.4); LYMPH % 11.5 % (22.0-35.0); MEAN CELL VOLUME 85.8 fl (80.0-105.0); MEAN CORPUSCULAR HEMOGLOBIN 28.1 pg (25.0-35.0); MEAN CORPUSCULAR HGB CONC 32.8 g/dl (31.0-37.0); MEAN PLATELET VOLUME 10.3 fl (7.0-11.0); MONO # 0.7 (0.1-0.6); MONO % 9.5 % (1.0-6.0); RED CELL DISTRIBUTION WIDTH 14.1 % (11.5-14.5); WHITE BLOOD COUNT 7.7 10^3/ul (4.5-11.0)
[2016-12-08 06:10] LABS: BLOOD UREA NITROGEN 12 mg/dL (7-21); CALCIUM 8.9 mg/dL (8.4-10.5); CARBON DIOXIDE 23 mmol/L (21-33); CHLORIDE 103 mmol/L (98-107); GFR AFRICAN-AMERICAN > 60; GLUCOSE,RANDOM 93 mg/dL (70-110); MAGNESIUM 1.7 mg/dL (1.7-2.2); PHOSPHOROUS 2.3 mg/dL (2.5-4.5); POTASSIUM 3.5 mmol/L (3.6-5.0); SODIUM 141 mmol/L (132-148)
--- NOTE | 2016-12-08 06:50 | CP.PCM.PN ---
Subjective - Date & Time of Evaluation Date of Evaluation: 12/08/16 Time of Evaluation: 06:53 - Subjective Subjective: Patient was seen at bedside. He is agitated,very combativ,wants to go home. Pulled out IV catheter. CT head yesterday showed decrease in size of subdural hematoma. Medical record was reviewed. 71 year old male was admitted with right leg weakness, recurrent fall, subdural hematoma. Has history of marijuana use, HTN, spinal stenosis, progressinve supranuclear palsy, cholecystectomy. Objective - Vital Signs/Intake and Output Vital Signs (last 24 hours): Temp Pulse Resp BP Pulse Ox 98.2 F 72 18 132/70 99 12/08/16 00:00 12/08/16 00:00 12/08/16 00:00 12/08/16 00:00 12/08/16 00:00 Intake and Output: 12/07/16 12/08/16 18:59 06:59 Output Total 1300 Balance -1300 - Medications Medications: Current Medications Carbidopa/Levodopa (Sinemet) 1 tab PO TID [facility] Last Admin: 12/07/16 18:37 Dose: 1 tab Escitalopram Oxalate (Lexapro) 10 mg PO DAILY [facility] Last Admin: 12/07/16 09:16 Dose: 10 mg Hydralazine HCl (Apresoline) 10 mg IVP Q6 PRN PRN Reason: Systolic Blood Pressure Acetaminophen (Ofirmev) 1,000 mg in 100 mls @ 400 mls/hr IVPB Q6H PRN PRN Reason: Pain, moderate (4-7) Stop: 12/08/16 17:38 Last Admin: 12/07/16 08:58 Dose: 400 mls/hr Levetiracetam (Keppra) 250 mg PO BID [facility] Last Admin: 12/07/16 18:36 Dose: 250 mg Losartan Potassium (Cozaar) 100 mg PO DAILY [facility] Last Admin: 12/07/16 09:16 Dose: 100 mg Pantoprazole Sodium (Protonix Inj) 40 mg IVP DAILY [facility] Last Admin: 12/07/16 09:16 Dose: 40 mg Tamsulosin HCl (Flomax) 0.4 mg PO DAILY [facility] Last Admin: 12/07/16 09:16 Dose: 0.4 mg - Labs Labs: 12/08/16 05:00 12/08/16 05:00 - Constitutional Appears: Well, No Acute Distress - Head Exam Head Exam: ATRAUMATIC, NORMAL INSPECTION, NORMOCEPHALIC - Eye Exam Eye Exam: Normal appearance - ENT Exam ENT Exam: Normal External Ear Exam - Neck Exam Neck Exam: Normal Inspection - Respiratory Exam Respiratory Exam: NORMAL BREATHING PATTERN - Cardiovascular Exam Cardiovascular Exam: absent: JVD - GI/Abdominal Exam GI & Abdominal Exam: absent: Distended - Rectal Exam Rectal Exam: Deferred - Exam Additional comments: Deferred. - Extremities Exam Extremities Exam: Normal Inspection - Back Exam Back Exam: NORMAL INSPECTION - Neurological Exam Neurological Exam: Altered - Psychiatric Exam Psychiatric exam: Agitated - Skin Skin Exam: Normal Color Assessment and Plan - Assessment and Plan (Free Text) Assessment: Agitation. S/P Subdural hematoma. HTN. Spinal stenosis. Plan: Benadryl IV was ordered but then Haldol 5 mg IM was given. May need to repeat CT head. Continue present management. Nurse will contact PMD .
[2016-12-08] MEDS ORDERED: DiphenhydrAMINE 50 mg/ml Inj IVP STA (06:51)
[2016-12-08] MEDS: Carbidopa/Levodopa 25/250 PO SCH ×3 (09:13→17:15)
--- NOTE | 2016-12-08 11:09 | CP.PCM.PN ---
Subjective - Date & Time of Evaluation Date of Evaluation: 12/08/16 Time of Evaluation: 10:45 - Subjective Subjective: somewhat agitated and confused, s/p Haldol 5mg, no cp, no sob, no N/V, no H/A Objective - Vital Signs/Intake and Output Vital Signs (last 24 hours): Temp Pulse Resp BP Pulse Ox 98.6 F 86 20 127/65 96 12/08/16 07:50 12/08/16 07:50 12/08/16 07:50 12/08/16 09:10 12/08/16 07:50 - Medications Medications: Current Medications Carbidopa/Levodopa (Sinemet) 1 tab PO TID [facility] Last Admin: 12/08/16 09:13 Dose: 1 tab Escitalopram Oxalate (Lexapro) 10 mg PO DAILY [facility] Last Admin: 12/08/16 09:11 Dose: 10 mg Hydralazine HCl (Apresoline) 10 mg IVP Q6 PRN PRN Reason: Systolic Blood Pressure Acetaminophen (Ofirmev) 1,000 mg in 100 mls @ 400 mls/hr IVPB Q6H PRN PRN Reason: Pain, moderate (4-7) Stop: 12/08/16 17:38 Last Admin: 12/07/16 08:58 Dose: 400 mls/hr Levetiracetam (Keppra) 250 mg PO BID [facility] Last Admin: 12/08/16 09:10 Dose: 250 mg Lorazepam (Ativan) 1 mg IM Q6H PRN; Protocol PRN Reason: Anxiety Last Admin: 12/08/16 08:06 Dose: 1 mg Lorazepam (Ativan) 0.5 mg IM Q6H PRN; Protocol PRN Reason: Anxiety Losartan Potassium (Cozaar) 100 mg PO DAILY [facility] Last Admin: 12/08/16 09:10 Dose: 100 mg Pantoprazole Sodium (Protonix Inj) 40 mg IVP DAILY [facility] Last Admin: 12/08/16 09:13 Dose: Not Given Tamsulosin HCl (Flomax) 0.4 mg PO DAILY [facility] Last Admin: 12/08/16 09:10 Dose: 0.4 mg - Labs Labs: 12/08/16 05:00 12/08/16 05:00 - Respiratory Exam Respiratory Exam: Clear to Ausculation Bilateral, NORMAL BREATHING PATTERN - Cardiovascular Exam Cardiovascular Exam: REGULAR RHYTHM - GI/Abdominal Exam GI & Abdominal Exam: Soft, Normal Bowel Sounds - Extremities Exam Extremities Exam: Normal Inspection - Neurological Exam Neurological Exam: Abnormal Gait, Altered - Psychiatric Exam Psychiatric exam: Agitated - Skin Skin Exam: Dry, Warm Assessment and Plan (1) Subdural hematoma Status: Acute (2) Progressive supranuclear palsy Status: Chronic (3) Hypertension Status: Chronic (4) Spinal stenosis Status: Acute - Assessment and Plan (Free Text) Plan: d/c [facility], 1:1 obs, neuro/NSGY f/u, for reeat CT head, PT & SW for d/c planning
--- NOTE | 2016-12-08 15:38 | PN ---
DATE: 12/08/2016 NEUROLOGY FOLLOWUP REPORT A 71-year-old man. CHIEF COMPLAINT: Followup for a subdural. SUBJECTIVE: The patient was seen and examined. The patient was agitated and combative this morning and had pulled out his IV lines. IM Haldol was given. He had a repeat CAT scan yesterday, on 12/07/2016, which showed interval evolution and mild diffuse in the size of the left-sided acute on chronic subdural and minimal mass effect. Currently, he is following simple commands. PAST MEDICAL HISTORY: History of progressive supranuclear palsy, diagnosed in 01/2016; history of prior CVA; anxiety; depression; BPH; hypertension. REVIEW OF SYSTEMS: A 14-point review of systems is negative except as per the HPI. FAMILY HISTORY: Not contributory. SOCIAL HISTORY: No illicit drug use, smoking, or EtOH abuse at this time. He is a former marijuana user. PHYSICAL EXAMINATION: VITAL SIGNS: Temperature of 98.6, pulse rate of 86, blood pressure 127/65, respiratory rate of 20, oxygen saturation 96% via room air. GENERAL: The patient is sitting up in bed, no acute distress. HEENT: Atraumatic and normocephalic. PERRLA. Extraocular muscles are intact. NECK: Supple. No JVD. No adenopathy noted. LUNGS: Clear to auscultation. No adventitious sounds. HEART: S1 and S2, normal rate and rhythm. No murmurs, rubs, or gallops. ABDOMEN: Soft, nontender and nondistended. Bowel sounds are present. EXTREMITIES: No clubbing. No cyanosis. Peripheral pulses 2+ felt bilaterally. NEUROLOGIC: The patient is alert, oriented to person and place, not much to month or year. Recall after 5 minutes is 0 out of 3. Poor attention and slow thought process. His speech is hypophonic. He has limited upward gaze. Motor exam: Slight increased tone throughout, mild cogwheel rigidity at wrist. He has forward flexion of the spine. Sensory exam: Light touch, pinprick, proprioception, vibration intact. DTRs are 1+ throughout. Coordination: Sisonn-pf-bubk intact. Gait is deferred for now. LABORATORY DATA: Sodium is 141, potassium 3.5, chloride 103, carbon dioxide 23, BUN of 12, creatinine 0.9, random glucose of 93. ASSESSMENT: This is a 71-year-old man with a past medical history of chronic back pain, anxiety, hypertension, history of mechanical fall, history of progressive supranuclear palsy associated with multiple falls, found to have unwitnessed fall at home, found to have acute on chronic subdural on the left which has decreased in size on the repeat CAT scan. 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 He has intermittent bouts of acute delirium in the hospital. He gets agitated. At this time recommend; 1. Maintain blood pressures between 120 to 130. Avoid hypertensive fluctuations. 2. Give Seroquel 25 mg at night and get a psych consult for acute delirium and for agitation. 3. Blood glucose between 140 to 180. 4. Keep Keppra at low dose, 250 p.o. b.i.d. for seizure prophylaxis given his subdural and will likely need subacute rehab. Thank you for this follow up. Rodrigo Shankar MD
[2016-12-09 07:33] LABS: BASO # 0.03 K/mm3 (0.0-2.0); BASO % 0.5 % (0.0-3.0); EOS % 0.6 % (1.5-5.0); GRAN # 4.58 (1.4-6.5); GRAN % 73.7 % (50.0-68.0); HEMATOCRIT 35.1 % (42.0-52.0); LYMPH # 0.8 (1.2-3.4); MEAN CELL VOLUME 83.6 fl (80.0-105.0); MEAN CORPUSCULAR HEMOGLOBIN 28.3 pg (25.0-35.0); MEAN CORPUSCULAR HGB CONC 33.9 g/dl (31.0-37.0); MEAN PLATELET VOLUME 9.3 fl (7.0-11.0); MONO # 0.8 (0.1-0.6); MONO % 12.2 % (1.0-6.0); WHITE BLOOD COUNT 6.2 10^3/ul (4.5-11.0)
[2016-12-09 08:30] LABS: BLOOD UREA NITROGEN 13 mg/dL (7-21); CALCIUM 9.3 mg/dL (8.4-10.5); CARBON DIOXIDE 27 mmol/L (21-33); CHLORIDE 105 mmol/L (98-107); GFR AFRICAN-AMERICAN > 60; GLUCOSE,RANDOM 93 mg/dL (70-110); MAGNESIUM 1.8 mg/dL (1.7-2.2); PHOSPHOROUS 3.2 mg/dL (2.5-4.5); SODIUM 142 mmol/L (132-148)
--- NOTE | 2016-12-09 10:06 | CP.PCM.PN ---
Subjective - Date & Time of Evaluation Date of Evaluation: 12/09/16 Time of Evaluation: 09:50 - Subjective Subjective: sedated, not easily arousable, NAD Objective - Vital Signs/Intake and Output Vital Signs (last 24 hours): Temp Pulse Resp BP Pulse Ox 98.3 F 123 H 20 142/80 97 12/09/16 07:00 12/09/16 07:00 12/09/16 07:00 12/09/16 07:00 12/09/16 07:00 Intake and Output: 12/09/16 12/09/16 06:59 18:59 Intake Total 0 Output Total 100 Balance -100 - Medications Medications: Current Medications Carbidopa/Levodopa (Sinemet) 1 tab PO TID [facility] Last Admin: 12/08/16 17:15 Dose: 1 tab Escitalopram Oxalate (Lexapro) 10 mg PO DAILY [facility] Last Admin: 12/08/16 09:11 Dose: 10 mg Hydralazine HCl (Apresoline) 10 mg IVP Q6 PRN PRN Reason: Systolic Blood Pressure Levetiracetam (Keppra) 250 mg PO BID [facility] Last Admin: 12/08/16 17:15 Dose: 250 mg Lorazepam (Ativan) 1 mg IM Q6H PRN; Protocol PRN Reason: Anxiety Last Admin: 12/08/16 23:02 Dose: 1 mg Lorazepam (Ativan) 0.5 mg IM Q6H PRN; Protocol PRN Reason: Anxiety Losartan Potassium (Cozaar) 100 mg PO DAILY [facility] Last Admin: 12/08/16 09:10 Dose: 100 mg Pantoprazole Sodium (Protonix Inj) 40 mg IVP DAILY [facility] Last Admin: 12/08/16 09:13 Dose: Not Given Tamsulosin HCl (Flomax) 0.4 mg PO DAILY [facility] Last Admin: 12/08/16 09:10 Dose: 0.4 mg - Labs Labs: 12/09/16 07:20 12/09/16 07:20 - Respiratory Exam Respiratory Exam: Clear to Ausculation Bilateral, NORMAL BREATHING PATTERN - Cardiovascular Exam Cardiovascular Exam: REGULAR RHYTHM - GI/Abdominal Exam GI & Abdominal Exam: Soft, Normal Bowel Sounds - Extremities Exam Extremities Exam: Normal Inspection - Neurological Exam Neurological Exam: Altered - Skin Skin Exam: Dry, Warm Assessment and Plan (1) Subdural hematoma Status: Acute (2) Progressive supranuclear palsy Status: Chronic (3) Hypertension Status: Chronic (4) Spinal stenosis Status: Acute - Assessment and Plan (Free Text) Plan: continue neuro/psych f/u, SW for dc planning
[2016-12-09] MEDS: Carbidopa/Levodopa 25/250 PO SCH ×3 (10:29→18:14)
--- NOTE | 2016-12-10 08:54 | CP.PCM.PN ---
Subjective - Date & Time of Evaluation Date of Evaluation: 12/10/16 Time of Evaluation: 08:50 - Subjective Subjective: awake and responsive this am,, less agitated Objective - Vital Signs/Intake and Output Vital Signs (last 24 hours): Temp Pulse Resp BP Pulse Ox 97.9 F 83 20 109/68 95 12/10/16 07:30 12/10/16 07:30 12/10/16 07:30 12/10/16 07:30 12/10/16 07:30 Intake and Output: 12/10/16 12/10/16 06:59 18:59 Intake Total 120 Output Total 200 Balance -80 - Medications Medications: Current Medications Carbidopa/Levodopa (Sinemet) 1 tab PO TID [facility] Last Admin: 12/09/16 18:14 Dose: 1 tab Escitalopram Oxalate (Lexapro) 10 mg PO DAILY [facility] Last Admin: 12/09/16 10:29 Dose: 10 mg Hydralazine HCl (Apresoline) 10 mg IVP Q6 PRN PRN Reason: Systolic Blood Pressure Levetiracetam (Keppra) 250 mg PO BID [facility] Last Admin: 12/09/16 18:14 Dose: 250 mg Lorazepam (Ativan) 0.5 mg IVP Q6H PRN; Protocol PRN Reason: agiation/anxiety Lorazepam (Ativan) 0.5 mg PO TID PRN; Protocol PRN Reason: Anxiety Losartan Potassium (Cozaar) 100 mg PO DAILY [facility] Last Admin: 12/09/16 10:29 Dose: 100 mg Pantoprazole Sodium (Protonix Inj) 40 mg IVP DAILY [facility] Last Admin: 12/09/16 10:30 Dose: Not Given Tamsulosin HCl (Flomax) 0.4 mg PO DAILY [facility] Last Admin: 12/09/16 10:29 Dose: 0.4 mg - Labs Labs: 12/09/16 07:20 12/09/16 07:20 - Respiratory Exam Respiratory Exam: Clear to Ausculation Bilateral, NORMAL BREATHING PATTERN - Cardiovascular Exam Cardiovascular Exam: REGULAR RHYTHM - GI/Abdominal Exam GI & Abdominal Exam: Soft, Normal Bowel Sounds - Neurological Exam Neurological Exam: Abnormal Gait, Alert, Awake - Skin Skin Exam: Dry, Warm Assessment and Plan (1) Subdural hematoma Status: Acute (2) Progressive supranuclear palsy Status: Chronic (3) Hypertension Status: Chronic (4) Spinal stenosis Status: Acute - Assessment and Plan (Free Text) Plan: PT eval & Tx, SW for DC planning, neuro f/u
[2016-12-10] MEDS: Carbidopa/Levodopa 25/250 PO SCH ×3 (10:03→17:57)
--- NOTE | 2016-12-10 11:32 | CT ---
PROCEDURE: CT HEAD WITHOUT CONTRAST. HISTORY: acute delirium COMPARISON: Comparison made with CT scan brain 12/07/2016 TECHNIQUE: Axial computed tomography images were obtained through the head/brain without intravenous contrast. Radiation dose: Total exam DLP = 779.23 mGy-cm. This CT exam was performed using one or more of the following dose reduction techniques: Automated exposure control, adjustment of the mA and/or kV according to patient size, and/or use of iterative reconstruction technique. FINDINGS: HEMORRHAGE: Re- demonstrated is small residual left-sided subdural hematoma the decreased in size slightly from prior CT scan. Part of the differences in size could be due to some dependent layering of subdural hematoma along the tentorium There has however been interval development of small hypodense right frontal extra-axial collection that may represent a small subdural hygroma however small amount of a admixed hemorrhage cannot be excluded. . BRAIN: Mild chronic periventricular white matter ischemic changes are again seen. . Mild generalized volume loss. Butt VENTRICLES: No obstructive hydrocephalus CALVARIUM: No acute calvarial fracture seen. PARANASAL SINUSES: Unremarkable as visualized. No significant inflammatory changes. MASTOID AIR CELLS: Unremarkable as visualized. No inflammatory changes. OTHER FINDINGS: None. IMPRESSION: There has been slight decrease in size left-sided subdural hematoma however some of the difference in size could be due to dependent layering of subdural hematoma along the tentorium. Interval development of a small right frontal hypodense extra-axial collection that could represent subdural hygroma admixed with small amount of hemorrhage. No obstructive hydrocephalus. Mild chronic white matter ischemic changes and mild generalized volume loss.
--- NOTE | 2016-12-10 14:40 | CON ---
HISTORY OF PRESENT ILLNESS: The patient is a 71-year-old male with past medical history of progressive supranuclear palsy diagnosed in 2016, prior CVAs, hypertension. As per history, the patient has anxiety and depression. The patient also has benign prostatic hypertrophy, presented to the emergency room status post fall, the patient was admitted on the medical side for that. Psych consult was called for evaluation of possible depression and change in mental status. The patient was seen and examined today. The patient presented to be alert and oriented in self, time and place; pleasant and cooperative. The patient is aware of the circumstances of his admission to the medical side. The patient said most likely psych consult was called because he was confused. The patient reported that last episodes of confusion were yesterday, and the patient remembers that. At present moment, the patient feels normal himself. Denies being depressed. Denied thoughts of killing himself or others. Denied seeing things. Denied hearing things. The patient reported that he had a good night sleep. PAST PSYCHIATRIC HISTORY: The patient denied past psychiatric history. Denied suicidal attempts in the past. Denied history of being admitted to the psychiatric inpatient unit. As per history from [facility], the patient was never been seen by psychiatrist in the past either. PHYSICAL EXAMINATION: VITAL SIGNS: This group underwriter reviewed vital signs, seem to be stable. Temperature 97.9, pulse is 83, blood pressure 109/68, respirations 20, oxygen saturation 95%. MEDICATIONS: Reviewed. The patient is on Sinemet. The patient is on Lexapro 10 mg daily, hydralazine, Keppra. The patient is on Ativan 1 mg IM q. 6 hours p.r.n. for anxiety, this group underwriter will change it to p.o. There is no need for the patient to have IM of lorazepam for anxiety. The patient is able to tolerate medication by mouth. The patient also is on Cozaar, Protonix and Flomax. LABORATORY DATA: Reviewed. Hemoglobin and hematocrit 11.9 and 35.1 respectively. Chemistry within normal limits. CT scan was done on ; the patient has subdural hematoma, mild mass effect and effacement of cortical sulci without herniation, midline shift or hydrocephalous. Rib x-ray also was done on ; acute, mildly displaced fracture on the right posterior ninth and tenth and eleventh ribs. No pneumothorax. Discussed with the nursing staff, the patient was pleasant, cooperative, no confusion. MENTAL STATUS EXAMINATION: The patient presented to be alert and oriented, pleasant, cooperative. Intermittent eye contact. Speech was low volume, monotonous. Mood described "I'm okay." Affect was constricted, but reactive, mood congruent. Thought process seems to be goal directed. Thought content, the patient denied visual, auditory, or tactile hallucinations. Denied paranoid ideation. The patient denied thoughts of harming himself or others. Denies intents or plan. Insight and judgment are fair. Impulses are well controlled. The patient does not present to be psychotic, agitated or confused. IMPRESSION: The patient had episodes of confusion yesterday, most likely due to medical condition. The patient has multiple medical issues, please see medical team notes for more detailed information. The patient had supranuclear palsy. The patient is status post fall, right rib fracture. Also, the patient had subdural hematoma, which could contribute to the patient's condition and confusion. PLAN: Continue current management. Continue current medications. This group underwriter discontinued IM of Ativan for anxiety, started p.o. and IV push as needed. The patient is on Lexapro, this group underwriter is not sure who started this medication and was this medication continued, most likely "yes" because the patient was taking that at home as per medical records in the emergency room, we will continue that. The patient deemed not to be in danger to self or others. Mental status is improving. This group underwriter will sign off. Should you have any questions, give me a call back. Physical therapy recommended. Thank you very much for letting me to participate in the care of your patient. Yesika Guaman MD
[2016-12-10 21:27] VITALS: O2SAT 99
[2016-12-11] MEDS ORDERED: Pantoprazole 40 mg EC Tab PO SCH (06:00)
[2016-12-11 07:41] VITALS: BP 108/63; PULSE 85; RESP 18; TEMP 97.6
--- NOTE | 2016-12-11 09:23 | CP.PCM.PN ---
Subjective - Date & Time of Evaluation Date of Evaluation: 12/11/16 Time of Evaluation: 09:15 - Subjective Subjective: OOB in chair, NAD, awake and calm Objective - Vital Signs/Intake and Output Vital Signs (last 24 hours): Temp Pulse Resp BP Pulse Ox 97.6 F 85 18 108/63 99 12/11/16 07:40 12/11/16 07:40 12/11/16 07:40 12/11/16 07:40 12/11/16 07:40 Intake and Output: 12/11/16 12/11/16 06:59 18:59 Intake Total 900 Output Total 1450 Balance -550 - Medications Medications: Current Medications Acetaminophen (Tylenol 325mg Tab) 650 mg PO Q6H PRN PRN Reason: Fever >100.4 F Carbidopa/Levodopa (Sinemet) 1 tab PO TID [facility] Last Admin: 12/10/16 17:57 Dose: 1 tab Escitalopram Oxalate (Lexapro) 10 mg PO DAILY [facility] Last Admin: 12/10/16 10:03 Dose: 10 mg Hydralazine HCl (Apresoline) 10 mg IVP Q6 PRN PRN Reason: Systolic Blood Pressure Levetiracetam (Keppra) 250 mg PO BID [facility] Last Admin: 12/10/16 17:57 Dose: 250 mg Lorazepam (Ativan) 0.5 mg IVP Q6H PRN; Protocol PRN Reason: agiation/anxiety Lorazepam (Ativan) 0.5 mg PO TID PRN; Protocol PRN Reason: Anxiety Losartan Potassium (Cozaar) 100 mg PO DAILY [facility] Last Admin: 12/10/16 10:03 Dose: 100 mg Pantoprazole Sodium (Protonix Ec Tab) 40 mg PO 0600 [facility] Last Admin: 12/11/16 06:28 Dose: 40 mg Tamsulosin HCl (Flomax) 0.4 mg PO DAILY [facility] Last Admin: 12/10/16 10:03 Dose: 0.4 mg Tramadol HCl (Ultram) 50 mg PO BID PRN PRN Reason: Pain, severe (8-10) Last Admin: 12/10/16 13:23 Dose: 50 mg - Labs Labs: 12/09/16 07:20 12/09/16 07:20 - Respiratory Exam Respiratory Exam: Clear to Ausculation Bilateral, NORMAL BREATHING PATTERN - Cardiovascular Exam Cardiovascular Exam: REGULAR RHYTHM - GI/Abdominal Exam GI & Abdominal Exam: Soft, Normal Bowel Sounds - Extremities Exam Extremities Exam: Normal Inspection - Neurological Exam Neurological Exam: Abnormal Gait, Alert, Awake - Skin Skin Exam: Dry, Warm Assessment and Plan (1) Subdural hematoma Status: Acute (2) Progressive supranuclear palsy Status: Chronic (3) Hypertension Status: Chronic (4) Spinal stenosis Status: Acute - Assessment and Plan (Free Text) Plan: continue PT, neuro f/u, SW for DC planning
[2016-12-11] MEDS: Carbidopa/Levodopa 25/250 PO SCH ×2 (11:29→16:15)
--- NOTE | 2016-12-24 17:57 | DS ---
HOSPITAL COURSE: The patient is a 71-year-old male with a history of progressive supranuclear palsy, who presented to the emergency department on 12/06/2016 with recurrent falls and right leg weakness. An MRI of the brain showed a subdural hematoma and the patient was admitted to the ICU for further observation and management. The patient was seen by neurosurgery and neurology, both concurred that no surgery was indicated. The patient received physical therapy and was discharged to [facility] in stable condition for rehabilitation on 12/11/2016. Vital signs, physical examination and impressions are as per progress note dictated on 12/11/2016. IMPRESSION: 1. Recurrent falls. 2. Subdural hematoma, possibly subacute. 3. Progressive supranuclear palsy. MEDICATIONS: The patient was discharged to [facility] on the following medications: Ativan 0.5 mg three times daily, Tramadol 50 mg twice daily, Protonix 40 mg daily, Sinemet CR 25/250 one tablet three times daily, Lexapro 10 mg daily and losartan 100 mg daily. The patient will be maintained on a heart-healthy diet. Activity is as per the rehab facility. The patient will be seen in my office post discharge from the rehab facility. NELL Cardozo MD
== END 2016-12-11 18:35 | DRG 86 ==
LOC: ED 13:04 → ERH 16:01 → CCU 17:21 → 5RNO 12-07 20:25
PROVIDERS: ADMIT Internal Medicine; ATTEND Internal Medicine
DX: S06.5X0A Traumatic subdural hemorrhage without loss of consciousness, initial encounter (principal); S22.41XA Multiple fractures of ribs, right side, initial encounter for closed fracture; G23.1 Progressive supranuclear ophthalmoplegia [Steele-Richardson-Olszewski]; S02.2XXA Fracture of nasal bones, initial encounter for closed fracture; S80.211A Abrasion, right knee, initial encounter; S00.81XA Abrasion of other part of head, initial encounter; I10 Essential (primary) hypertension; M48.06 Spinal stenosis, lumbar region; N40.0 Benign prostatic hyperplasia without lower urinary tract symptoms; F41.9 Anxiety disorder, unspecified; F32.9 Major depressive disorder, single episode, unspecified; F12.90 Cannabis use, unspecified, uncomplicated; R29.6 Repeated falls; W19.XXXA Unspecified fall, initial encounter; Z86.73 Personal history of transient ischemic attack (TIA), and cerebral infarction without residual deficits; Y92.009 Unspecified place in unspecified non-institutional (private) residence as the place of occurrence of the external cause